=== PATIENT | female | born 1970 | race Caucasian/White ===

== ENCOUNTER 2016-11-26 17:13 | Inpatient (IN) | payer SELFPAY ==
[2016-11-26] MEDS ORDERED: CLONIDINE HCL 0.2 MG TABLET PO ONE (18:01)
--- NOTE | 2016-11-26 18:02 | ER Document Report ---
ED Medical Screen (RME) - General Chief Complaint: Dizziness Stated Complaint: DIZZY,VOMITING,HEADACHE Time Seen by Provider: 11/26/16 18:01 TRAVEL OUTSIDE OF THE [place] IN LAST 30 DAYS: No - HPI Patient complains to provider of: Dizziness, vomiting, high blood pressure Notes: 11/26/16 18:02 Patient is a 46-year-old female presenting to the emergency room today complaining of dizziness with one episode of vomiting and high blood pressure, she reports she had a slight headache earlier today but that is resolved, she has a history of high blood pressure in the past but lost her insurance and therefore has not followed up in quite some time, she is not currently taking medication for blood pressure control, she denies any chest pain or shortness of breath - Related Data Allergies/Adverse Reactions: No Known Allergies Allergy (Verified 11/26/16 17:16) Past Medical History Renal/ Medical History: Denies: Hx Peritoneal Dialysis - Immunizations Hx Diphtheria, Pertussis, Tetanus Vaccination: Yes Physical Exam - Vital signs Vitals: Temp Pulse Resp BP Pulse Ox 97.8 F 82 20 280/146 H 100 11/26/16 17:23 11/26/16 17:23 11/26/16 17:23 11/26/16 17:23 11/26/16 17:23 Course - Vital Signs Vital signs: Temp Pulse Resp BP Pulse Ox 97.8 F 82 20 280/146 H 100 11/26/16 17:23 11/26/16 17:23 11/26/16 17:23 11/26/16 17:23 11/26/16 17:23
[2016-11-26] MEDS ORDERED: NICARDIPINE HCL RTU, ISO-OS 20 MG/200 ML RTUINJ IV ONE (18:22)
[2016-11-26] MEDS ORDERED: NICARDIPINE HCL RTU, ISO-OS 20 MG/200 ML RTUINJ IV PRN ×3 (18:23→20:16)
[2016-11-26 18:24] LABS: ABSOLUTE BASOPHILS # (AUTO) 0.1 10^3/uL (0.0-0.2); ABSOLUTE LYMPHOCYTES (AUTO) 0.7 10^3/uL (0.5-4.7); ABSOLUTE MONOCYTES (AUTO) 0.3 10^3/uL (0.1-1.4); ABSOLUTE NEUT (AUTO) 11.4 10^3/uL (1.7-8.2); BASOPHILS % (AUTO) 0.5 % (0-2); EOSINOPHILS % (AUTO) 0.1 % (0-6); HEMATOCRIT 38.7 % (36.0-47.0); HEMOGLOBIN 12.5 g/dL (12.0-15.5); HGB HCT DIFFERENCE -1.2; LYMPHOCYTES % (AUTO) 5.5 % (13-45); MEAN CORPUSCULAR HEMOGLOBIN 25.7 pg (27.0-33.4); MEAN CORPUSCULAR HGB CONC 32.4 g/dL (32.0-36.0); MEAN CORPUSCULAR VOLUME 79 fl (80-97); MONOCYTES % (AUTO) 2.7 % (3-13); RED BLOOD COUNT 4.87 10^6/uL (3.72-5.28); RED CELL DISTRIBUTION WIDTH 16.8 % (11.5-14.0); SEGMENTED NEUTROPHILS % (AUTO) 91.2 % (42-78); WHITE BLOOD COUNT 12.5 10^3/uL (4.0-10.5)
--- NOTE | 2016-11-26 18:31 | RADIOLOGY REPORT (SQ) ---
EXAM DESCRIPTION: CHEST PA/LAT COMPLETED DATE/TIME: 11/26/2016 6:14 pm REASON FOR STUDY: dizzy COMPARISON: None. EXAM PARAMETERS: NUMBER OF VIEWS: two views TECHNIQUE: Digital Frontal and Lateral radiographic views of the chest acquired. RADIATION DOSE: NA LIMITATIONS: none FINDINGS: LUNGS AND PLEURA: No opacities, masses or pneumothorax. No pleural effusion. MEDIASTINUM AND HILAR STRUCTURES: No masses or contour abnormalities. HEART AND VASCULAR STRUCTURES: Cardiac silhouette is at the upper limits of normal in size. BONES: No acute findings. HARDWARE: None in the chest. OTHER: No other significant finding. IMPRESSION: Cardiac silhouette is at the upper limits of normal in size. No acute consolidations or pleural effusions are identified. Other findings as noted above TECHNICAL DOCUMENTATION: JOB ID: [id number]- All Rights Reserved
[2016-11-26 18:46] LABS: ALANINE AMINOTRANSFERASE 21 U/L (9-52); ALKALINE PHOSPHATASE 101 U/L (38-126); ANION GAP 11 (5-19); ASPARTATE AMINO TRANSFERASE 19 U/L (14-36); BILIRUBIN,DIRECT 0.4 mg/dL (0.0-0.4); BILIRUBIN,TOTAL 0.8 mg/dL (0.2-1.3); BLOOD UREA NITROGEN 22 mg/dL (7-20); CALCIUM 9.1 mg/dL (8.4-10.2); CARBON DIOXIDE 28 mmol/L (22-30); CHLORIDE 102 mmol/L (98-107); CREATINE KINASE 65 U/L (30-135); CREATININE RESULT 1.12 mg/dL (0.52-1.25); GLUCOSE 110 mg/dL (75-110); POTASSIUM 3.9 mmol/L (3.6-5.0); SODIUM 140.9 mmol/L (137-145); TOTAL PROTEIN 7.1 g/dL (6.3-8.2)
[2016-11-26 18:49] LABS: CREATINE KINASE MB 1.23 ng/mL (<4.55)
[2016-11-26 18:52] LABS: TROPONIN I 0.092 ng/mL
--- NOTE | 2016-11-26 18:55 | ER Document Report ---
ED General - General Chief Complaint: Dizziness Stated Complaint: DIZZY,VOMITING,HEADACHE Time Seen by Provider: 11/26/16 18:01 Notes: Patient is a 46-year-old female with a past medical history of hypertension currently off all medications due to lack of insurance who presents with nausea , vomiting, vertigo, and headache. Patient states that the symptoms gradually started today while at work became progressive to the point where she could no longer stay at work and decided to come to the emergency department. She has not been following with her primary care doctor due to loss of insurance approximately 1 year ago but states that she used to require 3-4 blood pressure medications daily to control her blood pressure. Nothing improves or worsens her symptoms. She denies any associated chest pain or shortness of breath. No loss of consciousness. No history of intracranial bleed. Does describe her headache as a dull, mild, bifrontal headache that is now resolved. Her symptoms started approximately 3 hours prior to arrival. TRAVEL OUTSIDE OF THE [place] IN LAST 30 DAYS: No - Related Data Allergies/Adverse Reactions: No Known Allergies Allergy (Verified 11/26/16 17:16) Home Medications: Current Home Medications No Home Medications 11/26/16 [History] Past Medical History - General Information source: Patient - Social History Smoking Status: Never Smoker Frequency of alcohol use: None Drug Abuse: None Family History: Reviewed & Not Pertinent Renal/ Medical History: Denies: Hx Peritoneal Dialysis - Immunizations Hx Diphtheria, Pertussis, Tetanus Vaccination: Yes Review of Systems - Review of Systems Notes: Constitutional: Negative for fever. HENT: Negative for sore throat. Eyes: Negative for visual changes. Cardiovascular: Negative for chest pain. Respiratory: Negative for shortness of breath. Gastrointestinal: Negative for abdominal pain, positive for vomiting Genitourinary: Negative for dysuria. Musculoskeletal: Negative for back pain. Skin: Negative for rash. Neurological: Positive for headache and vertigo 10 point ROS negative except as marked above and in HPI. Physical Exam - Vital signs Vitals: Temp Pulse Resp BP Pulse Ox 97.8 F 82 20 280/146 H 100 11/26/16 17:23 11/26/16 17:23 11/26/16 17:23 11/26/16 17:23 11/26/16 17:23 Interpretation: Hypertensive Notes: PHYSICAL EXAMINATION: GENERAL: Appears mildly uncomfortable but no acute distress HEAD: Atraumatic, normocephalic. EYES: Pupils equal round and reactive to light, extraocular movements intact, sclera anicteric, conjunctiva are normal. ENT: nares patent, oropharynx clear without exudates. Moist mucous membranes. NECK: Normal range of motion, supple without lymphadenopathy LUNGS: Breath sounds clear to auscultation bilaterally and equal. No wheezes rales or rhonchi. HEART: Regular rate and rhythm without murmurs ABDOMEN: Soft, nontender, normoactive bowel sounds. No guarding, no rebound. No masses appreciated. EXTREMITIES: Normal range of motion, no pitting or edema. No cyanosis. NEUROLOGICAL: Face symmetric. Tongue protrudes midline. Extraocular motions intact. Pupils are 2 mm and equally reactive. Normal speech, normal gait. 5 out of 5 strength in both the distal and proximal upper and lower extremities bilaterally. Sensation is grossly intact throughout. Finger to nose testing normal. Pronator drift normal. PSYCH: Normal mood, normal affect. SKIN: Warm, Dry, normal turgor, no rashes or lesions noted. Course - Re-evaluation Re-evalutation: 11/26/16 18:13 Patient presents with severe hypertension initial systolic blood pressure of 280 on a manual cuff with associated dizziness, nausea and vomiting as well as a mild headache. Immediately upon arriving from my shift, I went to see this patient directly. She was immediately placed on nicardipine infusion targeting a systolic blood pressure 25% total reduction at 205 goal pressure. Patient has no focal neurologic deficits on examination. She denies any active headache at time of my assessment. A stat CT of the head was also ordered. Initial EKG does show signs consistent with left ventricular hypertrophy with associated repolarization abnormalities. There also trace ST depressions in the lateral leads V4 through 6. Initial troponin is moderately elevated at 0.096. Patient denies any active chest pain. Given patient's critically elevated blood pressure, the need for nicardipine infusion, the possibility of intracranial bleed, patient is critically ill and will require frequent reassessments and admission to the hospital. 11/26/16 19:12 CT head is unremarkable. Patient's blood pressure is on the nicardipine infusion has now dropped to 195 on 116 so we will hold the infusion and allow her blood pressure to stabilize at this time to prevent further dropping. 11/26/16 19:45 Nicardipine drip continues to be on hold and patient's blood pressure is stabilized at 188 and 103 right now. She no longer is dizzy or having a headache. She denies any chest pain. Will discuss with the hospitalist for admission. 11/26/16 20:13 Nicardipine infusion has been restarted at 2-1/2 mg/h as patient's blood pressure has again up trended back to 30 and 115. She however remains asymptomatic at this blood pressure. I discussed with Dr. Nuno Saldaña who has accepted the patient for admission. - Vital Signs Vital signs: Temp Pulse Resp BP Pulse Ox 97.8 F 82 23 H 197/107 H 96 11/26/16 17:23 11/26/16 18:16 11/26/16 20:16 11/26/16 20:16 11/26/16 20:16 - Laboratory Result Diagrams: 11/26/16 18:09 11/26/16 18:09 Laboratory results interpreted by me: 11/26/16 11/26/16 11/26/16 18:09 18:09 18:54 WBC 12.5 H MCV 79 L MCH 25.7 L RDW 16.8 H Seg Neutrophils % 91.2 H Lymphocytes % 5.5 L Monocytes % 2.7 L Absolute Neutrophils 11.4 H BUN 22 H Est GFR (Non-Af Amer) 52 L Urine Protein >=500 H Urine Glucose (UA) 50 H - Diagnostic Test Radiology reviewed: Image reviewed, Reports reviewed Radiology results interpreted by me: 11/26/16 20:18 CT head: No acute intercranial bleed - EKG Interpretation by Me Additional EKG results interpreted by me: 11/26/16 18:55 Sinus rhythm. Rate 72. LVH with associated repolarization abnormalities. 0.[address] depressions in V4 through 6. No ST elevations. Critical Care Note - Critical Care Note Total time excluding time spent on procedures (mins): 38 Comments: Critical care time spent obtaining history from patient or surrogate, discussions with consultants, development of treatment plan with patient or surrogate, evaluation of patient's response to treatment, examination of patient , ordering and performing treatments and interventions, ordering and review of laboratory studies, re-evaluation of patient's condition, ordering and review of radiographic studies and review of old charts Discharge - Discharge Clinical Impression: Hypertensive emergency, Dizziness Nausea and vomiting Qualifiers: Vomiting type: unspecified Vomiting Intractability: non-intractable Qualified Code(s): R11.2 - Nausea with vomiting, unspecified Condition: Fair Disposition: ADMITTED INPATIENT Admitting Provider: [facility] Unit Admitted: ICU
--- NOTE | 2016-11-26 18:59 | RADIOLOGY REPORT (SQ) ---
EXAM DESCRIPTION: CT HEAD WITHOUT COMPLETED DATE/TIME: 11/26/2016 6:48 pm REASON FOR STUDY: htn, ams, headache COMPARISON: None. TECHNIQUE: Axial images acquired through the brain without intravenous contrast. Images reviewed wi th bone, brain and subdural windows. Images stored on PACS. All CT scanners at this facility use dose modulation, iterative reconstruction, and/or weight based d osing when appropriate to reduce radiation dose to as low as reasonably achievable (ALARA). [facility]: Dose Right [facility]: CareDose [facility]: Dose Right [facility]: Teradose 4D [facility]: [employer] RADIATION DOSE: Up-to-date CT equipment and radiation dose reduction techniques were employed. CTDIv ol: 49.0 mGy. DLP: 783 mGy-cm. mGy. LIMITATIONS: None. FINDINGS: VENTRICLES: Normal size and contour. CEREBRUM: No masses. No hemorrhage. No midline shift. No evidence for acute infarction. Normal gra y/white matter differentiation. No areas of low density in the white matter. CEREBELLUM: No masses. No hemorrhage. No alteration of density. No evidence for acute infarction. EXTRAAXIAL SPACES: No fluid collections. No masses. ORBITS AND GLOBE: No intra- or extraconal masses. Normal contour of globe without masses. CALVARIUM: No fracture. PARANASAL SINUSES: No fluid or mucosal thickening. SOFT TISSUES: No mass or hematoma. OTHER: No other significant finding. IMPRESSION: NORMAL BRAIN CT WITHOUT CONTRAST. EVIDENCE OF ACUTE STROKE: NO. COMMENT: Quality ID # [id number]: Final reports with documentation of one or more dose reduction techniques (e.g., Automated exposure control, adjustment of the mA and/or kV according to patient size, use of iterative reconstruction technique) TECHNICAL DOCUMENTATION: JOB ID: [id number] [email or web address]- All Rights Reserved
[2016-11-26 19:13] LABS: APPEARANCE,URINE CLEAR; BILIRUBIN,URINE NEGATIVE (NEGATIVE); GLUCOSE, URINE 50 mg/dL (NEGATIVE); KETONES,URINE NEGATIVE (NEGATIVE); LEUKOCYTE ESTERASE,URINE NEGATIVE (NEGATIVE); NITRITE,URINE NEGATIVE (NEGATIVE); PROTEIN,URINE >=500 mg/dL (NEGATIVE); URINE SPECIFIC GRAVITY 1.005; UROBILINOGEN,URINE NEGATIVE mg/dL (<2.0)
[2016-11-26] MEDS ORDERED: MAGNESIUM HYDROXIDE SUSP 30 ML UDCUP PO PRN (20:12)
[2016-11-26] MEDS: ONDANSETRON HCL INJ/PF 4 MG/2 ML SDV IV PRN (21:09)
[2016-11-26] MEDS ORDERED: LISINOPRIL 10 MG TABLET PO SCH (22:00)
[2016-11-26 22:13] LABS: URINE BARBITURATES SCREEN NEGATIVE; URINE METHADONE SCREEN NEGATIVE; URINE OPIATES LOW NEGATIVE; URINE PHENCYCLIDINE SCREEN NEGATIVE
[2016-11-26] MEDS: ACETAMINOPHEN 325 MG TABLET PO PRN (23:17)
[2016-11-26 23:20] LABS: CREATINE KINASE MB 1.74 ng/mL (<4.55); TROPONIN I 0.09 ng/mL
--- NOTE | 2016-11-27 03:57 | EKG REPORT ---
SEVERITY:- ABNORMAL ECG - SINUS RHYTHM LVH WITH SECONDARY REPOLARIZATION ABNORMALITY ABNORMAL T, PROBABLE ISCHEMIA, LATERAL LEADS ANTERIOR ST ELEVATION, PROBABLY DUE TO LVH BORDERLINE PROLONGED QT INTERVAL : Confirmed by: Marlyn Calle MD 27-Nov-2016 03:56:20
[2016-11-27 05:10] LABS: ABSOLUTE BASOPHILS # (AUTO) 0.1 10^3/uL (0.0-0.2); ABSOLUTE LYMPHOCYTES (AUTO) 0.9 10^3/uL (0.5-4.7); ABSOLUTE MONOCYTES (AUTO) 0.6 10^3/uL (0.1-1.4); ABSOLUTE NEUT (AUTO) 14.1 10^3/uL (1.7-8.2); BASOPHILS % (AUTO) 0.4 % (0-2); EOSINOPHILS % (AUTO) 0.1 % (0-6); HEMATOCRIT 40.2 % (36.0-47.0); HGB HCT DIFFERENCE -1.2; LYMPHOCYTES % (AUTO) 5.7 % (13-45); MEAN CORPUSCULAR HEMOGLOBIN 25.8 pg (27.0-33.4); MEAN CORPUSCULAR HGB CONC 32.4 g/dL (32.0-36.0); MEAN CORPUSCULAR VOLUME 80 fl (80-97); RED BLOOD COUNT 5.05 10^6/uL (3.72-5.28); RED CELL DISTRIBUTION WIDTH 16.6 % (11.5-14.0); SEGMENTED NEUTROPHILS % (AUTO) 89.8 % (42-78); WHITE BLOOD COUNT 15.7 10^3/uL (4.0-10.5)
[2016-11-27 05:26] LABS: ANION GAP 12 (5-19); BLOOD UREA NITROGEN 19 mg/dL (7-20); CALCIUM 9.3 mg/dL (8.4-10.2); CARBON DIOXIDE 29 mmol/L (22-30); CHLORIDE 100 mmol/L (98-107); CREATININE RESULT 1.02 mg/dL (0.52-1.25); Direct HDL 54 mg/dL (>40); GLUCOSE 108 mg/dL (75-110); POTASSIUM 3.7 mmol/L (3.6-5.0); SODIUM 140.7 mmol/L (137-145); TRIGLYCERIDES 62 mg/dL (<150)
[2016-11-27 05:37] LABS: DIRECT LDL 225 mg/dL (<100)
[2016-11-27 05:38] LABS: CREATINE KINASE MB 2.77 ng/mL (<4.55)
[2016-11-27 05:41] LABS: TROPONIN I 0.164 ng/mL
--- NOTE | 2016-11-27 05:54 | PDOC H&P ---
History of Present Illness Admission Date/PCP: 11/26/16 20:33 Patient complains of: Nausea vomiting dizziness History of Present Illness: BERNIE CONTRERAS is a 46 year old female with a past medical history of hypertension though noncompliance with medication secondary to financial barriers for approximately 1 year would been her usual state of health until approximately 4 hours prior to presentation with headache, nausea vomiting blurred vision and dizziness prompting her evaluation emergency room where she is found to have a blood pressure of 280/160 she started on nicardipine with resolution of symptoms. She denies chest pain, shortness of breath or palpitations. She denies previous episode or change in medications. She is referred to the hospitalist for admission Past Medical History Cardiac Medical History: Reports: Hypertension - no meds Social History Information Source: Patient Smoking Status: Never Smoker Frequency of Alcohol Use: None Hx Recreational Drug Use: No - Advance Directive Resuscitation Status: Full Code Family History Family History: Hypertension Parental Family History Reviewed: Yes Children Family History Reviewed: Yes Sibling(s) Family History Reviewed.: Yes Medication/Allergy Home Medications: No Home Medications 11/26/16 Allergies/Adverse Reactions: No Known Allergies Allergy (Verified 11/26/16 17:16) Review of Systems Constitutional: ABSENT: chills, fever(s), headache(s), weight gain, weight loss Eyes: ABSENT: visual disturbances Ears: ABSENT: hearing changes Cardiovascular: ABSENT: chest pain, dyspnea on exertion, edema, orthropnea, palpitations Respiratory: ABSENT: cough, hemoptysis Gastrointestinal: ABSENT: abdominal pain, constipation, diarrhea, hematemesis, hematochezia, nausea, vomiting Genitourinary: ABSENT: dysuria, hematuria Musculoskeletal: ABSENT: joint swelling Integumentary: ABSENT: rash, wounds Neurological: ABSENT: abnormal gait, abnormal speech, confusion, dizziness, focal weakness, syncope Psychiatric: ABSENT: anxiety, depression, homidical ideation, suicidal ideation Endocrine: ABSENT: cold intolerance, heat intolerance, polydipsia, polyuria Hematologic/Lymphatic: ABSENT: easy bleeding, easy bruising Physical Exam Vital Signs: Temp Pulse Resp BP Pulse Ox 97.9 F 78 19 146/118 H 95 11/27/16 03:56 11/26/16 23:25 11/27/16 03:15 11/27/16 03:02 11/27/16 03:15 Intake & Output 11/25/16 11/26/16 11/27/16 11:59 11:59 11:59 Intake Total 100 Output Total 200 Balance -100 Weight 69.4 kg General appearance: PRESENT: cooperative, mild distress Head exam: PRESENT: atraumatic, normocephalic Eye exam: PRESENT: conjunctiva pink, EOMI, PERRLA. ABSENT: scleral icterus Ear exam: PRESENT: normal external ear exam Mouth exam: PRESENT: moist, tongue midline Neck exam: ABSENT: carotid bruit, JVD, lymphadenopathy, thyromegaly Respiratory exam: PRESENT: clear to auscultation surjit. ABSENT: rales, rhonchi, wheezes Cardiovascular exam: PRESENT: gallop, RRR, +S1, +S2, systolic murmur Pulses: PRESENT: normal dorsalis pedis pul Vascular exam: PRESENT: normal capillary refill GI/Abdominal exam: PRESENT: normal bowel sounds, soft. ABSENT: distended, guarding, mass, organolmegaly, rebound, tenderness Rectal exam: PRESENT: deferred Extremities exam: PRESENT: full ROM. ABSENT: calf tenderness, clubbing, pedal edema Neurological exam: PRESENT: alert, awake, oriented to person, oriented to place , oriented to time, oriented to situation, CN II-XII grossly intact. ABSENT: motor sensory deficit Psychiatric exam: PRESENT: appropriate affect, normal mood. ABSENT: homicidal ideation, suicidal ideation Skin exam: PRESENT: dry, intact, warm. ABSENT: cyanosis, rash Results Laboratory Results: 11/27/16 05:00 11/27/16 05:00 11/27/16 11/27/16 05:00 05:00 WBC 15.7 H RBC 5.05 Hgb 13.0 Hct 40.2 MCV 80 MCH 25.8 L MCHC 32.4 RDW 16.6 H Plt Count 240 Seg Neutrophils % 89.8 H Lymphocytes % 5.7 L Monocytes % 4.0 Eosinophils % 0.1 Basophils % 0.4 Absolute Neutrophils 14.1 H Absolute Lymphocytes 0.9 Absolute Monocytes 0.6 Absolute Eosinophils 0.0 Absolute Basophils 0.1 Sodium 140.7 Potassium 3.7 Chloride 100 Carbon Dioxide 29 Anion Gap 12 BUN 19 Creatinine 1.02 Est GFR ( Amer) > 60 Est GFR (Non-Af Amer) 58 L Glucose 108 Calcium 9.3 Triglycerides 62 Cholesterol 279.20 H LDL Cholesterol Direct 225 H VLDL Cholesterol 12.0 HDL Cholesterol 54 11/26/16 11/27/16 22:44 05:00 CK-MB (CK-2) 1.74 2.77 Troponin I 0.090 0.164 Impressions: Chest X-Ray 11/26/16 18:01 IMPRESSION: Cardiac silhouette is at the upper limits of normal in size. No acute consolidations or pleural effusions are identified. Other findings as noted above Head CT 11/26/16 18:23 IMPRESSION: NORMAL BRAIN CT WITHOUT CONTRAST. EVIDENCE OF ACUTE STROKE: NO. Assessment & Plan - Diagnosis (1) Hypertensive emergency Is this a current diagnosis for this admission?: Yes Plan: Admission to ICU for IV nicardipine. Goal blood pressure over the next 12 hours of 200/100. No obvious underlying cause. We will evaluate TSH and urine drug screen (2) Dizziness Is this a current diagnosis for this admission?: Yes Plan: Secondary to #1 symptomatic management and reduction in blood pressure (3) Nausea and vomiting Qualifiers: Vomiting type: unspecified Vomiting Intractability: non-intractable Qualified Code(s): R11.2 - Nausea with vomiting, unspecified Is this a current diagnosis for this admission?: Yes Plan: Secondary to #1 symptomatic management reduction of blood pressure - Time Time Spent: 50 to 70 Minutes - Inpatient Certification Medical Necessity: Need Close Monitoring Due to Risk of Patient Decompensation
[2016-11-27] MEDS ORDERED: NORMAL SALINE 1000 ML 1,000 ML IV ONE ×2 (07:19→08:23)
[2016-11-27] MEDS ORDERED: ASPIRIN 81 MG TABLET, CHEWABLE PO ONE (08:24)
[2016-11-27] MEDS ORDERED: ASPIRIN 81 MG TABLET, CHEWABLE ONE (08:30)
[2016-11-27] MEDS ORDERED: TRAMADOL HCL 50 MG TABLET PO PRN (08:30)
[2016-11-27] MEDS ORDERED: LACTULOSE SYRUP 20 GM/30 ML UDCUP PR SCH (10:00)
[2016-11-27] MEDS ORDERED: HYDROCHLOROTHIAZIDE 12.5 MG CAPSULE PO SCH (10:00)
[2016-11-27 11:09] LABS: PROTHROMBIN TIME 13.9 SEC (11.4-15.4)
[2016-11-27 11:10] LABS: PARTIAL THROMBOPLASTIN TIME 33.3 SEC (23.5-35.8)
[2016-11-27 11:32] LABS: CREATINE KINASE MB 4.23 ng/mL (<4.55)
[2016-11-27 11:41] LABS: TROPONIN I 0.418 ng/mL
--- NOTE | 2016-11-27 11:55 | RADIOLOGY REPORT (SQ) ---
EXAM DESCRIPTION: MRA NECK WITHOUT COMPLETED DATE/TIME: 11/27/2016 11:39 am REASON FOR STUDY: hypertensive emergency COMPARISON: None. TECHNIQUE: Axial 2-D volume acquisition imaging through the extracranial carotid and vertebral arter ies with reformatting using 3-D MIPS. LIMITATIONS: None. FINDINGS: RIGHT CAROTID ARTERY: No stenosis or occlusive changes. Limited visualization of the orig in. LEFT CAROTID ARTERY: No stenosis or occlusive changes. Limited visualization of the origin. VERTEBRAL ARTERY: The extracranial portions of the vertebral basilar system are preserved without roxana nosis. No aneurysmal dilatation or dissection is seen. OTHER: No other significant finding. IMPRESSION: NO SIGNIFICANT STENOSIS. COMMENT: Quality ID #[id number]: Measurements of distal internal carotid diameter were used as the denomin ator for stenosis measurement. TECHNICAL DOCUMENTATION: JOB ID: [id number] [employer]- All Rights Reserved
--- NOTE | 2016-11-27 11:59 | RADIOLOGY REPORT (SQ) ---
EXAM DESCRIPTION: MRA HEAD WITHOUT COMPLETED DATE/TIME: 11/27/2016 11:40 am REASON FOR STUDY: hypertensive emergency COMPARISON: None. TECHNIQUE: Axial 3-D [id number] acquisition imaging performed through the brain in the area of t he [place]. Images reformatted using 3-D MIPS. LIMITATIONS: None. FINDINGS: SOURCE IMAGES: No unexpected findings on source images. No large masses. 3-D MIP: No aneurysm. No occlusions. No significant stenosis. OTHER: No other significant finding. IMPRESSION: NORMAL MRA OF THE [place]. TECHNICAL DOCUMENTATION: JOB ID: [id number] [employer]- All Rights Reserved
--- NOTE | 2016-11-27 12:14 | XCELERA REPORT ---
[address] [address] Transthoracic Echocardiogram Report Name: BERNIE CONTRERAS Age: 46 yrs Gender: Female : 1970 Patient Status: Inpatient Patient Location: ICU^[id number] Study Date: 11/27/2016 09:15 AM Height: 63 in Weight: 153 lb BSA: 1.7 m2 Procedure: A complete two-dimensional transthoracic echocardiogram was performed (2D, M-mode, spectral and color flow Doppler). The study was technically adequate with some images being suboptimal in quality. Reason For Study: acute cva, hypertensive emergency Ordering Physician: SELVIN MIRANDA Performed By: Cornelius Beck Interpretation Summary The left ventricular ejection fraction is normal. There is moderate concentric left ventricular hypertrophy. Doppler measurements suggest pseudonormalized left ventricular relaxation, which is associated with grade II/IV or mild to moderate diastolic dysfunction The left ventricle is grossly normal size. Wall motion cannot be accurately commented on, but no definite regional wall motion abnormalities noted. The right ventricular systolic function is normal. Borderline right ventricular enlargement. The right atrium is mild to moderately dilated. The left atrium is mildly dilated. There is a mild amount of mitral regurgitation There is no mitral valve stenosis. No aortic regurgitation is present. There is no aortic valve stenosis There is a trace or physiologic amount of tricuspid regurgitation Tricuspid regurgitation jet envelope not well defined to measure RV systolic pressure accurately. Minimal pericardial effusion. MMode/2D Measurements & Calculations RVDd: 2.7 cm LVIDd: 4.7 cm FS: 38.6 % Ao root diam: 2.7 cm IVSd: 2.0 cm LVIDs: 2.9 cm EDV(Teich): 101.0 ml LVPWd: 1.8 cm ESV(Teich): 31.4 ml Ao root area: 5.7 cm2 EF(Teich): 68.9 % LA dimension: 4.0 cm Doppler Measurements & Calculations MV E max claude: MV P1/2t max claude: Ao V2 max: LV V1 max P.7 cm/sec 99.2 cm/sec 149.4 cm/sec 3.6 mmHg MV A max claude: MV P1/2t: 56.5 msec Ao max PG: LV V1 max: 84.4 cm/sec 8.9 mmHg 94.3 cm/sec MV E/A: 1.2 MVA(P1/2t): 3.9 cm2 MV dec slope: 514.0 cm/sec2 PA V2 max: PI end-d claude: TR max claude: RAP systole: 102.8 cm/sec 126.0 cm/sec 229.9 cm/sec 5.0 mmHg PA max PG: TR max P.2 mmHg 22.1 mmHg RVSP(TR): 27.1 mmHg Left Ventricle The left ventricle is grossly normal size. There is moderate concentric left ventricular hypertrophy. The left ventricular ejection fraction is normal. Doppler measurements suggest pseudonormalized left ventricular relaxation, which is associated with grade II/IV or mild to moderate diastolic dysfunction. Wall motion cannot be accurately commented on, but no definite regional wall motion abnormalities noted. Right Ventricle Borderline right ventricular enlargement. There is normal right ventricular wall thickness. The right ventricular systolic function is normal. Atria The right atrium is mild to moderately dilated. The left atrium is mildly dilated. Interarterial septum not well visualized and not well dopplered. Cannot comment on ASD/PFO presence. Mitral Valve The mitral valve is grossly normal. There is no mitral valve stenosis. There is a mild amount of mitral regurgitation. Aortic Valve The aortic valve is not well visualized secondary to technical limitations. There is no aortic valve stenosis. No aortic regurgitation is present. Tricuspid Valve The tricuspid valve is not well visualized, but is grossly normal. There is no tricuspid stenosis. There is a trace or physiologic amount of tricuspid regurgitation. Tricuspid regurgitation jet envelope not well defined to measure RV systolic pressure accurately. Pulmonic Valve The pulmonic valve is not well visualized. Great Vessels The aortic root is not well visualized. The inferior vena cava appeared normal and decreased < 50% with respiration (RAP 10-15 mmHg). Effusions Minimal pericardial effusion. Incidental Findings No definite cardiac source of CVA/TIA noted on this particular trans- thoracic study. Consider LOREE if clinically indicated. May consider mobile cardiac telemetry monitoring (MCT) for ruling out transient AFIB. : SELVIN MIRANDA Shyamal
--- NOTE | 2016-11-27 12:16 | RADIOLOGY REPORT (SQ) ---
EXAM DESCRIPTION: MRI HEAD WITHOUT COMPLETED DATE/TIME: 11/27/2016 11:40 am REASON FOR STUDY: cerebellar signs, hypertensive emergency COMPARISON: Brain CT scan dated 11/26/2016 TECHNIQUE: Multiplanar imaging includes non-contrasted T1, T2, FLAIR, and diffusion with ADC map seq uences. Images stored on PACS. LIMITATIONS: None. FINDINGS: ANATOMY: No anomalies. Normal vascular flow voids. Pituitary fossa normal. CSF SPACES: Normal in size and contour. No hemorrhage. CEREBRUM: Sulci and gyri normal in size and contour. There are diffuse confluent and focal areas of abnormal signal intensity in the periventricular white matter on the FLAIR sequence. Wihile this may only represent small vessel ischemic changes, the possibility of a demyelinating process such as MS cannot be excluded. Clinical correlation is recommended. No evidence of hemorrhage, mass, or extraa xial fluid collection. POSTERIOR FOSSA: No signal alteration. No hemorrhage. No edema, masses or mass effect. Internal tona tory canals, cerebello-pontine angles, mastoids normal. DIFFUSION IMAGING: There is a focal area of abnormal signal intensity at the level of the medulla on the right consistent with an area of recent infarction. ORBITS: No masses. Globes normal. PARANASAL SINUSES: No fluid levels. Mucosa normal. OTHER: No other significant finding. IMPRESSION: Diffuse confluent and focal areas of abnormal signal intensity in the periventricular wh ite matter on the FLAIR sequence as noted above. Will this may only represent small vessel ischemic changes, the possibility of a demyelinating process such is in mass cannot be excluded. Clinical cor relation is recommended. Focal area of abnormal signal intensity on the diffusion weighted sequence at the level of the medulla on the right consistent with an area of recent infarction. Other finding s as noted above EVIDENCE OF ACUTE STROKE: NO. TECHNICAL DOCUMENTATION: JOB ID: [id number] [employer]- All Rights Reserved
[2016-11-27] MEDS: ASPIRIN 325 MG TABLET, ENT COATED PO SCH (13:06)
[2016-11-27] MEDS: LISINOPRIL 10 MG TABLET PO SCH (13:06)
[2016-11-27] MEDS: DOCUSATE SODIUM 100 MG CAPSULE PO SCH ×2 (13:13→17:57)
[2016-11-27] MEDS: ENOXAPARIN SODIUM INJ 40 MG/0.4 ML DISP.SYRIN SUBCUT SCH (13:13)
[2016-11-27] MEDS ORDERED: LORAZEPAM INJ 2 MG/1 ML VIAL IV PRN (18:09)
--- NOTE | 2016-11-27 18:15 | PDOC PROGRESS REPORT ---
Subjective Progress Note for:: 11/27/16 Subjective:: Patient currently off Cardene when I see her. Patient notes some difficulty with her vision and her nystagmus is quite obvious upon my initial meeting. Patient admits to mild headache. Patient denies chest pain, shortness of breath, abdominal pain, nausea, vomiting , fevers, chills, diarrhea, constipation. Physical Exam Vital Signs: Temp Pulse Resp BP Pulse Ox 97.6 F 61 12 191/110 H 100 11/27/16 16:00 11/27/16 16:00 11/27/16 16:00 11/27/16 16:00 11/27/16 16:00 Intake & Output 11/26/16 11/27/16 11/28/16 06:59 06:59 06:59 Intake Total 353 Output Total 200 800 Balance 153 -800 Weight 69.4 kg Exam: General: Awake alert and oriented x3, no acute respiratory distress HEENT: AT/NC, PERRL, oropharynx is moist, pink, no scleral icterus, no conjunctival injection Neck: No JVD, trachea midline Chest: Clear to auscultation bilaterally, no wheezes rhonchi or rales CV: Regular rate and rhythm, normal S1 and S2, no murmur, rub, gallop Abdomen: Soft, nontender to palpation, nondistended, active bowel sounds; no rebound, rigidity, or guarding Extremities: No cyanosis, clubbing or edema Neuro: nystagmus, right eye lateral devation. +FTN, +lean to right; ataxia; vertigo; awake alert and oriented x3 Psych: Normal mood and affect Results Laboratory Results: 11/27/16 05:00 11/27/16 05:00 11/27/16 11/27/16 05:00 05:00 WBC 15.7 H RBC 5.05 Hgb 13.0 Hct 40.2 MCV 80 MCH 25.8 L MCHC 32.4 RDW 16.6 H Plt Count 240 Seg Neutrophils % 89.8 H Lymphocytes % 5.7 L Monocytes % 4.0 Eosinophils % 0.1 Basophils % 0.4 Absolute Neutrophils 14.1 H Absolute Lymphocytes 0.9 Absolute Monocytes 0.6 Absolute Eosinophils 0.0 Absolute Basophils 0.1 Sodium 140.7 Potassium 3.7 Chloride 100 Carbon Dioxide 29 Anion Gap 12 BUN 19 Creatinine 1.02 Est GFR ( Amer) > 60 Est GFR (Non-Af Amer) 58 L Glucose 108 Calcium 9.3 Triglycerides 62 Cholesterol 279.20 H LDL Cholesterol Direct 225 H VLDL Cholesterol 12.0 HDL Cholesterol 54 11/26/16 11/27/16 11/27/16 22:44 05:00 10:49 CK-MB (CK-2) 1.74 2.77 4.23 Troponin I 0.090 0.164 0.418 Impressions: Chest X-Ray 11/26/16 18:01 IMPRESSION: Cardiac silhouette is at the upper limits of normal in size. No acute consolidations or pleural effusions are identified. Other findings as noted above Head CT 11/26/16 18:23 IMPRESSION: NORMAL BRAIN CT WITHOUT CONTRAST. EVIDENCE OF ACUTE STROKE: NO. Brain MRI with MRA 11/27/16 00:00 IMPRESSION: NORMAL MRA OF THE [place] OF [place]. Head MRI 11/27/16 00:00 IMPRESSION: Diffuse confluent and focal areas of abnormal signal intensity in the periventricular white matter on the FLAIR sequence as noted above. Will this may only represent small vessel ischemic changes, the possibility of a demyelinating process such is in mass cannot be excluded. Clinical correlation is recommended. Focal area of abnormal signal intensity on the diffusion weighted sequence at the level of the medulla on the right consistent with an area of recent infarction. Other findings as noted above EVIDENCE OF ACUTE STROKE: NO. Neck MRA 11/27/16 00:00 IMPRESSION: NO SIGNIFICANT STENOSIS. Assessment & Plan - Diagnosis (1) Hypertensive emergency Is this a current diagnosis for this admission?: Yes Plan: Patient presented with acute neurologic findings and an exceptionally elevated blood pressure. Goal blood pressure to 220/120 in light of her acute neurologic findings. Currently off Cardene drip 11/26/16 11/26/16 11/26/16 17:23 17:55 18:16 Blood Pressure 270/138 H 270/138 H Blood Pressure 280/146 H [Upper Arm] 11/26/16 11/26/16 11/26/16 19:12 19:17 19:32 Blood Pressure 195/116 H 201/101 H 188/103 H Blood Pressure [Upper Arm] 11/26/16 19:47 Blood Pressure 193/101 H Blood Pressure [Upper Arm] (2) PRES (posterior reversible encephalopathy syndrome) Is this a current diagnosis for this admission?: Yes Plan: At this time the neuroradiologist has reviewed her MRI and there is concern for progress. We will place patient on seizure precautions. If patient does have a seizure, she will need to be loaded with 1 g of Dilantin. Initial read of the MRI was for a small stroke at the level of the mid to left. This is also still a possibility. Continue PT/OT consult. Mend examination. Have discussed this case with Dr. Kennedy of [facility]. (3) Hyperlipidemia LDL goal <70 Is this a current diagnosis for this admission?: Yes Plan: Initiate patient on simvastatin (4) Tobacco abuse Is this a current diagnosis for this admission?: Yes Plan: As soon as blood pressures under control will prescribe nicotine patch.. Have encouraged cessation. (5) Elevated troponin Is this a current diagnosis for this admission?: Yes Plan: This is likely secondary to cardiac strain. - Time Time Spent with patient: 35 or more minutes Critical Time spent with patient: 35 or more minutes
[2016-11-27] MEDS: SENNOSIDES/DOCUSATE 8.6-50 MG 1 EACH TABLET PO SCH (21:40)
[2016-11-27] MEDS: SIMVASTATIN 40 MG TABLET PO SCH (21:40)
[2016-11-27] MEDS ORDERED: SIMVASTATIN 40 MG TABLET PO SCH (22:00)
[2016-11-28] MEDS ORDERED: ENALAPRILAT DIHYDRATE INJ/PF 2.5 MG/2 ML SDV IV ONE ×2 (03:53→04:00)
[2016-11-28] MEDS ORDERED: NICARDIPINE HCL RTU, ISO-OS 20 MG/200 ML RTUINJ IV ONE (04:40)
[2016-11-28] MEDS: NICARDIPINE HCL RTU, ISO-OS 20 MG/200 ML RTUINJ IV PRN ×3 (08:17→17:20)
[2016-11-28] MEDS: LABETALOL HCL INJ 20 MG/4 ML DISP.SYRIN IV PRN ×2 (08:18→17:20)
[2016-11-28] MEDS: LISINOPRIL 10 MG TABLET PO SCH ×2 (09:04→22:53)
[2016-11-28] MEDS: DOCUSATE SODIUM 100 MG CAPSULE PO SCH ×2 (09:05→17:19)
[2016-11-28] MEDS: HYDROCHLOROTHIAZIDE 25 MG TABLET PO SCH (09:05)
[2016-11-28] MEDS: ASPIRIN 325 MG TABLET, ENT COATED PO SCH (09:05)
[2016-11-28] MEDS: ENOXAPARIN SODIUM INJ 40 MG/0.4 ML DISP.SYRIN SUBCUT SCH (09:06)
[2016-11-28] MEDS ORDERED: CLONIDINE 0.1 MG/24 HR PATCH.TDWK TD SCH (10:00)
[2016-11-28] MEDS ORDERED: LORAZEPAM INJ 2 MG/1 ML VIAL IV ONE (17:17)
[2016-11-28] MEDS: ACETAMINOPHEN 325 MG TABLET PO PRN (17:19)
--- NOTE | 2016-11-28 17:20 | PDOC PROGRESS REPORT ---
Subjective Progress Note for:: 11/28/16 Subjective:: Patient currently back on Cardene when I see her. Patient notes some difficulty with her vision and her nystagmus is persistent. She continues to be ataxic. Patient denies chest pain, shortness of breath, abdominal pain, nausea, vomiting , fevers, chills, diarrhea, constipation. Physical Exam Vital Signs: Temp Pulse Resp BP Pulse Ox 98.4 F 65 14 202/99 H 97 11/28/16 04:00 11/28/16 04:00 11/28/16 06:19 11/28/16 06:19 11/28/16 06:19 Intake & Output 11/27/16 11/28/16 11/29/16 06:59 06:59 06:59 Intake Total 353 4442 Output Total 200 4100 Balance 153 342 Weight 69.4 kg 75.5 kg Exam: General: Awake alert and oriented x3, no acute respiratory distress HEENT: AT/NC, PERRL, oropharynx is moist, pink, no scleral icterus, no conjunctival injection Neck: No JVD, trachea midline Chest: Clear to auscultation bilaterally, no wheezes rhonchi or rales CV: Regular rate and rhythm, normal S1 and S2, no murmur, rub, gallop Abdomen: Soft, nontender to palpation, nondistended, active bowel sounds; no rebound, rigidity, or guarding Extremities: No cyanosis, clubbing or edema Neuro: nystagmus, right eye lateral devation. +FTN, +lean to right; ataxia; vertigo; awake alert and oriented x3 Psych: Normal mood and affect Results Laboratory Results: 11/27/16 05:00 11/27/16 05:00 11/26/16 11/27/16 11/27/16 22:44 05:00 10:49 CK-MB (CK-2) 1.74 2.77 4.23 Troponin I 0.090 0.164 0.418 Impressions: Chest X-Ray 11/26/16 18:01 IMPRESSION: Cardiac silhouette is at the upper limits of normal in size. No acute consolidations or pleural effusions are identified. Other findings as noted above Head CT 11/26/16 18:23 IMPRESSION: NORMAL BRAIN CT WITHOUT CONTRAST. EVIDENCE OF ACUTE STROKE: NO. Brain MRI with MRA 11/27/16 00:00 IMPRESSION: NORMAL MRA OF THE [place] OF [place]. Head MRI 11/27/16 00:00 IMPRESSION: Diffuse confluent and focal areas of abnormal signal intensity in the periventricular white matter on the FLAIR sequence as noted above. Will this may only represent small vessel ischemic changes, the possibility of a demyelinating process such is in mass cannot be excluded. Clinical correlation is recommended. Focal area of abnormal signal intensity on the diffusion weighted sequence at the level of the medulla on the right consistent with an area of recent infarction. Other findings as noted above EVIDENCE OF ACUTE STROKE: NO. Neck MRA 11/27/16 00:00 IMPRESSION: NO SIGNIFICANT STENOSIS. Assessment & Plan - Diagnosis (1) Hypertensive emergency Is this a current diagnosis for this admission?: Yes Plan: Patient presented with acute neurologic findings and an exceptionally elevated blood pressure. Goal blood pressure to 160/90 in light of her acute neurologic findings. Currently on Cardene drip. Initiate oral medications including lisinopril, hydrochlorthiazide, and hydralazine. Labetalol as needed. (2) PRES (posterior reversible encephalopathy syndrome) Is this a current diagnosis for this admission?: Yes Plan: At this time the neuroradiologist has reviewed her MRI and there is concern for progress. We will place patient on seizure precautions. If patient does have a seizure, she will need to be loaded with 1 g of Dilantin. Initial read of the MRI was for a small stroke at the level of the medulla. Continue PT/OT consult. Mend examination. She will need rehabilitation (3) Hyperlipidemia LDL goal <70 Is this a current diagnosis for this admission?: Yes Plan: Initiate patient on simvastatin (4) Tobacco abuse Is this a current diagnosis for this admission?: Yes Plan: As soon as blood pressures under control will prescribe nicotine patch.. Have encouraged cessation. (5) Elevated troponin Is this a current diagnosis for this admission?: Yes Plan: This is likely secondary to cardiac strain. Trending down and improving. - Time Time Spent with patient: 35 or more minutes Medications reviewed and adjusted accordingly: Yes Anticipated discharge: Acute Rehab
[2016-11-28] MEDS ORDERED: AMLODIPINE BESYLATE 5 MG TABLET PO ONE (18:15)
[2016-11-28] MEDS: SENNOSIDES/DOCUSATE 8.6-50 MG 1 EACH TABLET PO SCH (22:53)
[2016-11-28] MEDS: HYDRALAZINE HCL 50 MG TABLET PO SCH (22:54)
[2016-11-28] MEDS: SIMVASTATIN 40 MG TABLET PO SCH (22:54)
[2016-11-28] MEDS: AMLODIPINE BESYLATE 5 MG TABLET PO SCH (22:54)
[2016-11-29] MEDS: LABETALOL HCL INJ 20 MG/4 ML DISP.SYRIN IV PRN (05:23)
[2016-11-29] MEDS: HYDRALAZINE HCL 50 MG TABLET PO SCH ×3 (05:23→21:45)
[2016-11-29 06:06] LABS: ANION GAP 10 (5-19); BLOOD UREA NITROGEN 30 mg/dL (7-20); CALCIUM 9.3 mg/dL (8.4-10.2); CARBON DIOXIDE 27 mmol/L (22-30); CHLORIDE 103 mmol/L (98-107); CREATININE RESULT 1.36 mg/dL (0.52-1.25); GLUCOSE 101 mg/dL (75-110); SODIUM 139.7 mmol/L (137-145)
[2016-11-29] MEDS ORDERED: CLONIDINE HCL 0.2 MG TABLET PO ONE (09:15)
[2016-11-29] MEDS: LISINOPRIL 10 MG TABLET PO SCH ×2 (10:01→21:46)
[2016-11-29] MEDS: DOCUSATE SODIUM 100 MG CAPSULE PO SCH ×2 (10:02→17:32)
[2016-11-29] MEDS: HYDROCHLOROTHIAZIDE 25 MG TABLET PO SCH (10:02)
[2016-11-29] MEDS: ASPIRIN 325 MG TABLET, ENT COATED PO SCH (10:02)
[2016-11-29] MEDS: ENOXAPARIN SODIUM INJ 40 MG/0.4 ML DISP.SYRIN SUBCUT SCH (10:03)
--- NOTE | 2016-11-29 10:34 | RADIOLOGY REPORT (SQ) ---
EXAM DESCRIPTION: U/S LTD DUPLEX ART/LIO FLOW COMPLETED DATE/TIME: 11/29/2016 9:43 am REASON FOR STUDY: concern for ELÍAS COMPARISON: None. TECHNIQUE: Realtime and static grayscale images acquired. Selected color Doppler, velocities and spe ctral images recorded. LIMITATIONS: Body habitus. Overlying bowel gas. FINDINGS: Both kidneys are normal in size. Proximal renal arteries are not well visualized. Veloci ties are within normal limits in the visualized portions of the renal arteries. Renal aortic velocit ies are within normal limits. IMPRESSION: NO DOPPLER EVIDENCE OF HEMODYNAMICALLY SIGNIFICANT RENAL ARTERY STENOSIS. COMMENT: NORMAL RENAL ARTERY/AORTA VELOCITY RATIO IS LESS THAN OR EQUAL TO 3.5. TECHNICAL DOCUMENTATION: JOB ID: [id number] [employer]- All Rights Reserved
[2016-11-29] MEDS ORDERED: INFLUENZA ADLT QUAD (36MOS+) 2017-18 VAC 0.5 ML SYR IM PRN (11:15)
[2016-11-29] MEDS: CLONIDINE HCL 0.2 MG TABLET PO SCH ×2 (13:18→21:46)
--- NOTE | 2016-11-29 16:03 | PDOC PROGRESS REPORT ---
Subjective Progress Note for:: 11/29/16 Subjective:: Patient currently off Cardene when I see her. Patient notes her vision is somewhat improved, but still blurry. Patient is still somewhat ataxic. Patient denies chest pain, shortness of breath, abdominal pain, nausea, vomiting , fevers, chills, diarrhea, constipation. Physical Exam Vital Signs: Temp Pulse Resp BP Pulse Ox 98.1 F 68 17 136/74 H 94 11/29/16 12:00 11/29/16 12:00 11/29/16 14:45 11/29/16 14:27 11/29/16 14:45 Intake & Output 11/28/16 11/29/16 11/30/16 06:59 06:59 06:59 Intake Total 4442 919 Output Total 4100 3950 300 Balance 342 -8548 -300 Weight 75.5 kg 76.2 kg Exam: General: Awake alert and oriented x3, no acute respiratory distress HEENT: AT/NC, PERRL, oropharynx is moist, pink, no scleral icterus, no conjunctival injection Neck: No JVD, trachea midline Chest: Clear to auscultation bilaterally, no wheezes rhonchi or rales CV: Regular rate and rhythm, normal S1 and S2, no murmur, rub, gallop Abdomen: Soft, nontender to palpation, nondistended, active bowel sounds; no rebound, rigidity, or guarding Extremities: No cyanosis, clubbing or edema Neuro: nystagmus, right eye lateral devation. +FTN; ataxia; awake alert and oriented x3 Psych: Normal mood and affect Results Laboratory Results: 11/27/16 05:00 11/29/16 05:43 11/29/16 05:43 Sodium 139.7 Potassium 4.0 Chloride 103 Carbon Dioxide 27 Anion Gap 10 BUN 30 H Creatinine 1.36 H Est GFR ( Amer) 50 L Est GFR (Non-Af Amer) 42 L Glucose 101 Calcium 9.3 11/26/16 11/27/16 11/27/16 22:44 05:00 10:49 CK-MB (CK-2) 1.74 2.77 4.23 Troponin I 0.090 0.164 0.418 11/28/16 11/28/16 11/28/16 06:39 12:42 18:17 CK-MB (CK-2) Troponin I 0.329 0.186 0.209 11/29/16 00:28 CK-MB (CK-2) Troponin I 0.220 Impressions: Chest X-Ray 11/26/16 18:01 IMPRESSION: Cardiac silhouette is at the upper limits of normal in size. No acute consolidations or pleural effusions are identified. Other findings as noted above Head CT 11/26/16 18:23 IMPRESSION: NORMAL BRAIN CT WITHOUT CONTRAST. EVIDENCE OF ACUTE STROKE: NO. Brain MRI with MRA 11/27/16 00:00 IMPRESSION: NORMAL MRA OF THE [place] OF [place]. Head MRI 11/27/16 00:00 IMPRESSION: Diffuse confluent and focal areas of abnormal signal intensity in the periventricular white matter on the FLAIR sequence as noted above. Will this may only represent small vessel ischemic changes, the possibility of a demyelinating process such is in mass cannot be excluded. Clinical correlation is recommended. Focal area of abnormal signal intensity on the diffusion weighted sequence at the level of the medulla on the right consistent with an area of recent infarction. Other findings as noted above EVIDENCE OF ACUTE STROKE: NO. Neck MRA 11/27/16 00:00 IMPRESSION: NO SIGNIFICANT STENOSIS. Vascular Ultrasound 11/29/16 00:00 IMPRESSION: NO DOPPLER EVIDENCE OF HEMODYNAMICALLY SIGNIFICANT RENAL ARTERY STENOSIS. Assessment & Plan - Diagnosis (1) Hypertensive emergency Is this a current diagnosis for this admission?: Yes Plan: Patient presented with acute neurologic findings and an exceptionally elevated blood pressure. Patient now off Cardene. Generic Name Dose Route Start Last Admin Trade Name Freq PRN Reason Stop Dose Admin Hydrochlorothiazide 25 mg 11/27/16 10:00 11/29/16 10:02 Hydrodiuril 25 Mg Tablet PO 12/27/16 09:59 25 mg DAILY JEROMY Lisinopril 20 mg 11/27/16 10:00 11/29/16 10:01 Prinivil 10 Mg Tablet PO 12/27/16 09:59 20 mg Q12 JEROMY Amlodipine Besylate 5 mg 11/28/16 22:00 11/28/16 22:54 Norvasc 5 Mg Tablet PO 12/28/16 21:59 5 mg QHS JEROMY Clonidine 0.2 mg 11/29/16 14:00 11/29/16 13:18 Catapres 0.2 Mg Tablet PO 12/29/16 13:59 0.2 mg Q8 JEROMY Hydralazine HCl 50 mg 11/28/16 22:00 11/29/16 13:17 Apresoline 50 Mg Tablet PO 12/28/16 21:59 50 mg Q8 [facility] Have send urine metanephrines and serum metanephrines. Renal ultrasound for ELÍAS is negative (2) PRES (posterior reversible encephalopathy syndrome) Is this a current diagnosis for this admission?: Yes Plan: At this time the neuroradiologist has reviewed her MRI and there is concern for PRES. We will place patient on seizure precautions. If patient does have a seizure, she will need to be loaded with 1 g of Dilantin. Initial read of the MRI was positive for a small stroke at the level of the medulla. Continue PT, aspirin, statin, and blood pressure control. She will need rehabilitation (3) Hyperlipidemia LDL goal <70 Is this a current diagnosis for this admission?: Yes Plan: Patient on simvastatin Will monitor for rhabdomyolysis in light of her concurrent use of Norvasc (4) Tobacco abuse Is this a current diagnosis for this admission?: Yes Plan: nicotine patch prn. Have encouraged cessation. (5) Elevated troponin Is this a current diagnosis for this admission?: Yes Plan: This is likely secondary to cardiac strain. Trending down and improving. - Time Time Spent with patient: 25-34 minutes Medications reviewed and adjusted accordingly: Yes Anticipated discharge: Acute Rehab Within: when bed available
[2016-11-29] MEDS ORDERED: NICOTINE 14 MG/24 HR PATCH.TD24 TD ONE (16:15)
[2016-11-29] MEDS: SIMVASTATIN 40 MG TABLET PO SCH (21:46)
[2016-11-29] MEDS: SENNOSIDES/DOCUSATE 8.6-50 MG 1 EACH TABLET PO SCH (21:46)
[2016-11-29] MEDS: AMLODIPINE BESYLATE 5 MG TABLET PO SCH (21:47)
[2016-11-30] MEDS: HYDRALAZINE HCL 50 MG TABLET PO SCH ×3 (04:36→21:35)
[2016-11-30] MEDS: CLONIDINE HCL 0.2 MG TABLET PO SCH ×3 (04:36→21:36)
[2016-11-30 06:21] LABS: ANION GAP 12 (5-19); BLOOD UREA NITROGEN 42 mg/dL (7-20); CALCIUM 10.2 mg/dL (8.4-10.2); CARBON DIOXIDE 27 mmol/L (22-30); CHLORIDE 101 mmol/L (98-107); GLUCOSE 103 mg/dL (75-110); POTASSIUM 4.4 mmol/L (3.6-5.0); SODIUM 139.6 mmol/L (137-145)
[2016-11-30] MEDS: HYDROCHLOROTHIAZIDE 25 MG TABLET PO SCH (09:52)
[2016-11-30] MEDS: NICOTINE 14 MG/24 HR PATCH.TD24 TD SCH (09:52)
[2016-11-30] MEDS: DOCUSATE SODIUM 100 MG CAPSULE PO SCH ×2 (09:52→17:18)
[2016-11-30] MEDS: LISINOPRIL 10 MG TABLET PO SCH ×2 (09:53→21:36)
[2016-11-30] MEDS: ASPIRIN 325 MG TABLET, ENT COATED PO SCH (09:53)
[2016-11-30] MEDS: ENOXAPARIN SODIUM INJ 40 MG/0.4 ML DISP.SYRIN SUBCUT SCH (09:53)
--- NOTE | 2016-11-30 11:11 | PDOC PROGRESS REPORT ---
Subjective Progress Note for:: 11/30/16 Subjective:: Complains of dizziness. Also blurry vision Physical Exam Vital Signs: Temp Pulse Resp BP Pulse Ox 97.8 F 53 L 16 141/85 H 97 11/30/16 08:00 11/30/16 08:14 11/30/16 08:00 11/30/16 08:03 11/30/16 08:02 Intake & Output 11/29/16 11/30/16 12/01/16 06:59 06:59 06:59 Intake Total 919 290 240 Output Total 3950 1500 30 Balance -3031 -1210 210 Weight 76.2 kg 72.5 kg General appearance: PRESENT: no acute distress Eye exam: PRESENT: conjunctiva pink, nystagmus. ABSENT: scleral icterus Mouth exam: PRESENT: moist, tongue midline Neck exam: ABSENT: JVD Respiratory exam: PRESENT: clear to auscultation surjit. ABSENT: rales, rhonchi, wheezes Cardiovascular exam: PRESENT: RRR. ABSENT: diastolic murmur, rubs, systolic murmur GI/Abdominal exam: PRESENT: normal bowel sounds, soft. ABSENT: distended, guarding, mass, organolmegaly, rebound, tenderness Extremities exam: ABSENT: calf tenderness, clubbing, pedal edema Neurological exam: PRESENT: alert, awake, oriented to person, oriented to place , oriented to time, oriented to situation. ABSENT: CN II-XII grossly intact - Nystagmus right worse than left, motor sensory deficit Psychiatric exam: PRESENT: appropriate affect Skin exam: PRESENT: dry, intact, warm. ABSENT: cyanosis, rash Results Laboratory Results: 11/27/16 05:00 11/30/16 05:41 11/30/16 05:41 Sodium 139.6 Potassium 4.4 Chloride 101 Carbon Dioxide 27 Anion Gap 12 BUN 42 H Creatinine 1.60 H Est GFR ( Amer) 42 L Est GFR (Non-Af Amer) 35 L Glucose 103 Calcium 10.2 11/26/16 11/27/16 11/27/16 22:44 05:00 10:49 CK-MB (CK-2) 1.74 2.77 4.23 Troponin I 0.090 0.164 0.418 11/28/16 11/28/16 11/28/16 06:39 12:42 18:17 CK-MB (CK-2) Troponin I 0.329 0.186 0.209 11/29/16 00:28 CK-MB (CK-2) Troponin I 0.220 Impressions: Chest X-Ray 11/26/16 18:01 IMPRESSION: Cardiac silhouette is at the upper limits of normal in size. No acute consolidations or pleural effusions are identified. Other findings as noted above Head CT 11/26/16 18:23 IMPRESSION: NORMAL BRAIN CT WITHOUT CONTRAST. EVIDENCE OF ACUTE STROKE: NO. Brain MRI with MRA 11/27/16 00:00 IMPRESSION: NORMAL MRA OF THE [place] OF [place]. Head MRI 11/27/16 00:00 IMPRESSION: Diffuse confluent and focal areas of abnormal signal intensity in the periventricular white matter on the FLAIR sequence as noted above. Will this may only represent small vessel ischemic changes, the possibility of a demyelinating process such is in mass cannot be excluded. Clinical correlation is recommended. Focal area of abnormal signal intensity on the diffusion weighted sequence at the level of the medulla on the right consistent with an area of recent infarction. Other findings as noted above EVIDENCE OF ACUTE STROKE: NO. Neck MRA 11/27/16 00:00 IMPRESSION: NO SIGNIFICANT STENOSIS. Vascular Ultrasound 11/29/16 00:00 IMPRESSION: NO DOPPLER EVIDENCE OF HEMODYNAMICALLY SIGNIFICANT RENAL ARTERY STENOSIS. Assessment & Plan - Diagnosis (1) Hypertensive emergency Is this a current diagnosis for this admission?: Yes Plan: Patient's blood pressures have improved. She can be moved out of the intensive care unit to the floor. Will continue with current therapy. (2) PRES (posterior reversible encephalopathy syndrome) Is this a current diagnosis for this admission?: Yes Plan: This is improving with control of her blood pressure. She does have an abnormality resulting in nystagmus. Will start physical therapy. (3) Hyperlipidemia LDL goal <70 Is this a current diagnosis for this admission?: Yes Plan: Continue Zocor. (4) Elevated troponin Is this a current diagnosis for this admission?: Yes Plan: Most likely secondary to hypertensive emergency. Continue with aspirin. - Time Time Spent with patient: 25-34 minutes - Inpatient Certification Medical Necessity: Need Close Monitoring Due to Risk of Patient Decompensation - Plan Summary Plan Summary: We will transfer to the floor today.
[2016-11-30] MEDS: AMLODIPINE BESYLATE 5 MG TABLET PO SCH (21:34)
[2016-11-30] MEDS: SIMVASTATIN 40 MG TABLET PO SCH (21:35)
[2016-11-30] MEDS: SENNOSIDES/DOCUSATE 8.6-50 MG 1 EACH TABLET PO SCH (21:36)
[2016-12-01 04:31] LABS: ABSOLUTE BASOPHILS # (AUTO) 0.1 10^3/uL (0.0-0.2); ABSOLUTE EOSINOPHILS # (AUTO) 0.1 10^3/uL (0.0-0.6); ABSOLUTE LYMPHOCYTES (AUTO) 1.9 10^3/uL (0.5-4.7); ABSOLUTE MONOCYTES (AUTO) 0.8 10^3/uL (0.1-1.4); BASOPHILS % (AUTO) 0.6 % (0-2); EOSINOPHILS % (AUTO) 0.8 % (0-6); HEMATOCRIT 39.1 % (36.0-47.0); HEMOGLOBIN 12.8 g/dL (12.0-15.5); HGB HCT DIFFERENCE -0.7; LYMPHOCYTES % (AUTO) 11.7 % (13-45); MEAN CORPUSCULAR HEMOGLOBIN 26.1 pg (27.0-33.4); MEAN CORPUSCULAR HGB CONC 32.7 g/dL (32.0-36.0); MEAN CORPUSCULAR VOLUME 80 fl (80-97); MONOCYTES % (AUTO) 5.3 % (3-13); RED BLOOD COUNT 4.92 10^6/uL (3.72-5.28); RED CELL DISTRIBUTION WIDTH 16.8 % (11.5-14.0); SEGMENTED NEUTROPHILS % (AUTO) 81.6 % (42-78)
[2016-12-01 04:58] LABS: ANION GAP 12 (5-19); CALCIUM 10.8 mg/dL (8.4-10.2); CARBON DIOXIDE 26 mmol/L (22-30); CHLORIDE 102 mmol/L (98-107); CREATININE RESULT 1.92 mg/dL (0.52-1.25); GLUCOSE 111 mg/dL (75-110); POTASSIUM 4.5 mmol/L (3.6-5.0); SODIUM 140.1 mmol/L (137-145)
[2016-12-01 05:10] LABS: BLOOD UREA NITROGEN 63 mg/dL (7-20)
[2016-12-01] MEDS: HYDRALAZINE HCL 50 MG TABLET PO SCH ×3 (05:51→22:12)
[2016-12-01] MEDS: CLONIDINE HCL 0.2 MG TABLET PO SCH ×3 (05:52→22:12)
[2016-12-01] MEDS: ENOXAPARIN SODIUM INJ 40 MG/0.4 ML DISP.SYRIN SUBCUT SCH (09:56)
[2016-12-01] MEDS: DOCUSATE SODIUM 100 MG CAPSULE PO SCH ×2 (09:57→18:18)
[2016-12-01] MEDS: NICOTINE 14 MG/24 HR PATCH.TD24 TD SCH (09:57)
[2016-12-01] MEDS: ASPIRIN 325 MG TABLET, ENT COATED PO SCH (09:57)
[2016-12-01] MEDS: NORMAL SALINE 1000 ML 1,000 ML IV PRN ×2 (10:03→15:30)
[2016-12-01] MEDS: HYDROCHLOROTHIAZIDE 25 MG TABLET PO SCH (10:35)
[2016-12-01] MEDS: LISINOPRIL 10 MG TABLET PO SCH ×2 (10:35→22:12)
--- NOTE | 2016-12-01 11:38 | PDOC PROGRESS REPORT ---
Subjective Progress Note for:: 12/01/16 Subjective:: Continues to have dizziness. Physical Exam Vital Signs: Temp Pulse Resp BP Pulse Ox 98.7 F 66 18 132/76 H 98 12/01/16 08:00 12/01/16 08:00 12/01/16 08:00 12/01/16 08:00 12/01/16 08:00 Intake & Output 11/30/16 12/01/16 12/02/16 06:59 06:59 06:59 Intake Total 290 595 Output Total 1500 30 Balance -1210 565 Weight 72.5 kg 72 kg General appearance: PRESENT: no acute distress Eye exam: PRESENT: conjunctiva pink, nystagmus. ABSENT: scleral icterus Mouth exam: PRESENT: moist, tongue midline Neck exam: ABSENT: JVD Respiratory exam: PRESENT: clear to auscultation surjit. ABSENT: rales, rhonchi, wheezes Cardiovascular exam: PRESENT: RRR. ABSENT: diastolic murmur, rubs, systolic murmur GI/Abdominal exam: PRESENT: normal bowel sounds, soft. ABSENT: distended, guarding, mass, organolmegaly, rebound, tenderness Rectal exam: PRESENT: deferred Extremities exam: ABSENT: calf tenderness, clubbing, pedal edema Neurological exam: PRESENT: alert, awake, oriented to person, oriented to place , oriented to time, oriented to situation. ABSENT: CN II-XII grossly intact - Ataxia with nystagmus of the right eye greater than left eye, motor sensory deficit Psychiatric exam: PRESENT: appropriate affect Skin exam: PRESENT: dry, intact, warm. ABSENT: cyanosis, rash Results Laboratory Results: 12/01/16 04:17 12/01/16 04:17 12/01/16 12/01/16 04:17 04:17 WBC 16.0 H RBC 4.92 Hgb 12.8 Hct 39.1 MCV 80 MCH 26.1 L MCHC 32.7 RDW 16.8 H Plt Count 275 Seg Neutrophils % 81.6 H Lymphocytes % 11.7 L Monocytes % 5.3 Eosinophils % 0.8 Basophils % 0.6 Absolute Neutrophils 13.0 H Absolute Lymphocytes 1.9 Absolute Monocytes 0.8 Absolute Eosinophils 0.1 Absolute Basophils 0.1 Sodium 140.1 Potassium 4.5 Chloride 102 Carbon Dioxide 26 Anion Gap 12 BUN 63 H D Creatinine 1.92 H Est GFR ( Amer) 34 L Est GFR (Non-Af Amer) 28 L Glucose 111 H Calcium 10.8 H 11/26/16 11/27/16 11/27/16 22:44 05:00 10:49 CK-MB (CK-2) 1.74 2.77 4.23 Troponin I 0.090 0.164 0.418 11/28/16 11/28/16 11/28/16 06:39 12:42 18:17 CK-MB (CK-2) Troponin I 0.329 0.186 0.209 11/29/16 00:28 CK-MB (CK-2) Troponin I 0.220 Impressions: Chest X-Ray 11/26/16 18:01 IMPRESSION: Cardiac silhouette is at the upper limits of normal in size. No acute consolidations or pleural effusions are identified. Other findings as noted above Head CT 11/26/16 18:23 IMPRESSION: NORMAL BRAIN CT WITHOUT CONTRAST. EVIDENCE OF ACUTE STROKE: NO. Brain MRI with MRA 11/27/16 00:00 IMPRESSION: NORMAL MRA OF THE [place]. Head MRI 11/27/16 00:00 IMPRESSION: Diffuse confluent and focal areas of abnormal signal intensity in the periventricular white matter on the FLAIR sequence as noted above. Will this may only represent small vessel ischemic changes, the possibility of a demyelinating process such is in mass cannot be excluded. Clinical correlation is recommended. Focal area of abnormal signal intensity on the diffusion weighted sequence at the level of the medulla on the right consistent with an area of recent infarction. Other findings as noted above EVIDENCE OF ACUTE STROKE: NO. Neck MRA 11/27/16 00:00 IMPRESSION: NO SIGNIFICANT STENOSIS. Vascular Ultrasound 11/29/16 00:00 IMPRESSION: NO DOPPLER EVIDENCE OF HEMODYNAMICALLY SIGNIFICANT RENAL ARTERY STENOSIS. Assessment & Plan - Diagnosis (1) Hypertensive emergency Is this a current diagnosis for this admission?: Yes Plan: Patient's blood pressures have improved. She can be moved out of the intensive care unit to the floor. Will continue with current therapy. (2) PRES (posterior reversible encephalopathy syndrome) Is this a current diagnosis for this admission?: Yes Plan: This is improving with control of her blood pressure. She does have an abnormality resulting in nystagmus. Will start physical therapy. (3) Hyperlipidemia LDL goal <70 Is this a current diagnosis for this admission?: Yes Plan: Continue Zocor. (4) Elevated troponin Is this a current diagnosis for this admission?: Yes Plan: Most likely secondary to hypertensive emergency. Continue with aspirin. (5) Acute renal failure Is this a current diagnosis for this admission?: Yes Plan: The patient's creatinine continues to increase. Will give IV fluids. Will consult nephrology when they are available. - Time Time Spent with patient: 25-34 minutes - Inpatient Certification Medical Necessity: Need Close Monitoring Due to Risk of Patient Decompensation - Plan Summary Plan Summary: Patient is still in intensive care unit but has transfer orders to move out to the floor when a bed is available. Will continue with physical therapy as tolerated.
[2016-12-01 11:40] LABS: NORMETANEPHRINE 72 pg/mL (0-145)
[2016-12-01 12:01] LABS: METANEPHRINE 28 pg/mL (0-62)
[2016-12-01] MEDS: AMLODIPINE BESYLATE 5 MG TABLET PO SCH (22:12)
[2016-12-01] MEDS: SIMVASTATIN 40 MG TABLET PO SCH (22:13)
[2016-12-01] MEDS: SENNOSIDES/DOCUSATE 8.6-50 MG 1 EACH TABLET PO SCH (22:13)
[2016-12-02] MEDS: NORMAL SALINE 1000 ML 1,000 ML IV PRN ×2 (00:47→08:10)
[2016-12-02] MEDS: HYDRALAZINE HCL 50 MG TABLET PO SCH ×2 (05:12→16:36)
[2016-12-02] MEDS: CLONIDINE HCL 0.2 MG TABLET PO SCH ×2 (05:12→16:34)
[2016-12-02 05:51] LABS: ABSOLUTE EOSINOPHILS # (AUTO) 0.1 10^3/uL (0.0-0.6); ABSOLUTE LYMPHOCYTES (AUTO) 1.6 10^3/uL (0.5-4.7); ABSOLUTE MONOCYTES (AUTO) 0.9 10^3/uL (0.1-1.4); BASOPHILS % (AUTO) 0.4 % (0-2); EOSINOPHILS % (AUTO) 0.9 % (0-6); HEMATOCRIT 35.4 % (36.0-47.0); HEMOGLOBIN 11.7 g/dL (12.0-15.5); HGB HCT DIFFERENCE -0.3; LYMPHOCYTES % (AUTO) 12.6 % (13-45); MEAN CORPUSCULAR HEMOGLOBIN 26.5 pg (27.0-33.4); MEAN CORPUSCULAR VOLUME 80 fl (80-97); MONOCYTES % (AUTO) 6.9 % (3-13); RED BLOOD COUNT 4.41 10^6/uL (3.72-5.28); RED CELL DISTRIBUTION WIDTH 16.5 % (11.5-14.0); SEGMENTED NEUTROPHILS % (AUTO) 79.2 % (42-78); WHITE BLOOD COUNT 12.6 10^3/uL (4.0-10.5)
[2016-12-02 06:13] LABS: ANION GAP 13 (5-19); BLOOD UREA NITROGEN 47 mg/dL (7-20); CALCIUM 9.3 mg/dL (8.4-10.2); CARBON DIOXIDE 20 mmol/L (22-30); CHLORIDE 109 mmol/L (98-107); GLUCOSE 74 mg/dL (75-110); POTASSIUM 3.9 mmol/L (3.6-5.0); SODIUM 142.2 mmol/L (137-145)
[2016-12-02] MEDS: ENOXAPARIN SODIUM INJ 40 MG/0.4 ML DISP.SYRIN SUBCUT SCH (10:38)
[2016-12-02] MEDS: ASPIRIN 325 MG TABLET, ENT COATED PO SCH (10:39)
[2016-12-02] MEDS: LISINOPRIL 10 MG TABLET PO SCH (10:39)
[2016-12-02] MEDS: DOCUSATE SODIUM 100 MG CAPSULE PO SCH ×2 (10:39→17:19)
[2016-12-02] MEDS: HYDROCHLOROTHIAZIDE 25 MG TABLET PO SCH (10:40)
[2016-12-02] MEDS: NICOTINE 14 MG/24 HR PATCH.TD24 TD SCH (10:40)
--- NOTE | 2016-12-02 10:50 | PDOC PROGRESS REPORT ---
Subjective Progress Note for:: 12/02/16 Subjective:: Continues to have dizziness. Physical Exam Vital Signs: Temp Pulse Resp BP Pulse Ox 98.0 F 65 18 112/60 99 12/02/16 07:56 12/02/16 07:56 12/02/16 07:56 12/02/16 07:56 12/02/16 07:56 Intake & Output 12/01/16 12/02/16 12/03/16 06:59 06:59 06:59 Intake Total 595 2770 Output Total 30 900 Balance 565 1870 Weight 72 kg 74 kg General appearance: PRESENT: no acute distress Eye exam: PRESENT: conjunctiva pink, nystagmus. ABSENT: scleral icterus Mouth exam: PRESENT: moist, tongue midline Neck exam: ABSENT: JVD Respiratory exam: PRESENT: clear to auscultation surjit. ABSENT: rales, rhonchi, wheezes Cardiovascular exam: PRESENT: RRR. ABSENT: diastolic murmur, rubs, systolic murmur GI/Abdominal exam: PRESENT: normal bowel sounds, soft. ABSENT: distended, guarding, mass, organolmegaly, rebound, tenderness Extremities exam: ABSENT: calf tenderness, clubbing, pedal edema Neurological exam: PRESENT: alert, awake, oriented to person, oriented to place , oriented to time, oriented to situation. ABSENT: CN II-XII grossly intact - Nystagmus in the right greater than left, motor sensory deficit Psychiatric exam: PRESENT: appropriate affect Skin exam: PRESENT: dry, intact, warm. ABSENT: cyanosis, rash Results Laboratory Results: 12/02/16 04:29 12/02/16 04:29 12/02/16 12/02/16 04:29 04:29 WBC 12.6 H RBC 4.41 Hgb 11.7 L Hct 35.4 L MCV 80 MCH 26.5 L MCHC 33.0 RDW 16.5 H Plt Count 248 Seg Neutrophils % 79.2 H Lymphocytes % 12.6 L Monocytes % 6.9 Eosinophils % 0.9 Basophils % 0.4 Absolute Neutrophils 10.0 H Absolute Lymphocytes 1.6 Absolute Monocytes 0.9 Absolute Eosinophils 0.1 Absolute Basophils 0.0 Sodium 142.2 Potassium 3.9 Chloride 109 H Carbon Dioxide 20 L Anion Gap 13 BUN 47 H Creatinine 1.30 H Est GFR ( Amer) 53 L Est GFR (Non-Af Amer) 44 L Glucose 74 L Calcium 9.3 11/26/16 11/27/16 11/27/16 22:44 05:00 10:49 CK-MB (CK-2) 1.74 2.77 4.23 Troponin I 0.090 0.164 0.418 11/28/16 11/28/16 11/28/16 06:39 12:42 18:17 CK-MB (CK-2) Troponin I 0.329 0.186 0.209 11/29/16 00:28 CK-MB (CK-2) Troponin I 0.220 Impressions: Chest X-Ray 11/26/16 18:01 IMPRESSION: Cardiac silhouette is at the upper limits of normal in size. No acute consolidations or pleural effusions are identified. Other findings as noted above Head CT 11/26/16 18:23 IMPRESSION: NORMAL BRAIN CT WITHOUT CONTRAST. EVIDENCE OF ACUTE STROKE: NO. Brain MRI with MRA 11/27/16 00:00 IMPRESSION: NORMAL MRA OF THE [place] OF [place]. Head MRI 11/27/16 00:00 IMPRESSION: Diffuse confluent and focal areas of abnormal signal intensity in the periventricular white matter on the FLAIR sequence as noted above. Will this may only represent small vessel ischemic changes, the possibility of a demyelinating process such is in mass cannot be excluded. Clinical correlation is recommended. Focal area of abnormal signal intensity on the diffusion weighted sequence at the level of the medulla on the right consistent with an area of recent infarction. Other findings as noted above EVIDENCE OF ACUTE STROKE: NO. Neck MRA 11/27/16 00:00 IMPRESSION: NO SIGNIFICANT STENOSIS. Vascular Ultrasound 11/29/16 00:00 IMPRESSION: NO DOPPLER EVIDENCE OF HEMODYNAMICALLY SIGNIFICANT RENAL ARTERY STENOSIS. Assessment & Plan - Diagnosis (1) Hypertensive emergency Is this a current diagnosis for this admission?: Yes Plan: Blood pressures have been stable. (2) PRES (posterior reversible encephalopathy syndrome) Is this a current diagnosis for this admission?: Yes Plan: This is improving with control of her blood pressure. She does have an abnormality resulting in nystagmus. Will continue physical therapy. (3) Hyperlipidemia LDL goal <70 Is this a current diagnosis for this admission?: Yes Plan: Continue Zocor. (4) Elevated troponin Is this a current diagnosis for this admission?: Yes Plan: Most likely secondary to hypertensive emergency. Continue with aspirin. (5) Acute renal failure Is this a current diagnosis for this admission?: Yes Plan: The patient's creatinine has improved with IV fluids. Nephrology consultation will not be available until next week. - Time Time Spent with patient: 25-34 minutes - Inpatient Certification Medical Necessity: Need Close Monitoring Due to Risk of Patient Decompensation
--- NOTE | 2016-12-02 16:03 | RADIOLOGY REPORT (SQ) ---
EXAM DESCRIPTION: KOMALIE SWALLOW COMPLETED DATE/TIME: 12/02/2016 9:16 am REASON FOR STUDY: Dysphagia unspecified R 13.10, food in pharynx causing other injury, sequela T17.2 28S poss. aspiration of thin COMPARISON: None. TECHNIQUE: Videofluoroscopic swallowing examination was performed in conjunction with speech patholo gy. Videofluoroscopic imaging was obtained and reviewed and these are the findings: RADIATION DOSE: Total fluoroscopy time: 3 minutes 24 seconds 1 fluoroscopy image saved to PACS. LIMITATIONS: None FINDINGS: The patient was brought into the fluoro room and placed upright on a modified barium swall ow chair. The patient was then given multiple consistencies mixed with barium to swallow under live fluoroscopic video guidance. According to the Speech Pathologist there was laryngeal penetration and tracheal aspiration with thin, nectar, and post swallow residual consistencies. No significant angely y in oral or pharyngeal phase noted. Mild to moderate post swallow residual seen within the vallecul a and piriform sinuses. Please see speech pathology report for further details and recommendations. IMPRESSION: LARYNGEAL PENETRATION AND TRACHEAL ASPIRATION WITH THIN, NECTAR, AND POST SWALLOW RESIDU AL CONSISTENCIES.PLEASE SEE SPEECH PATHOLOGIST REPORT FOR OTHER FINDINGS AND RECOMMENDATIONS. COMMENT: Quality ID [id number]: Final reports for procedures using fluoroscopy that document radiation exp osure indices, or exposure time and number of fluorographic images (if radiation exposure indices are not available) TECHNICAL DOCUMENTATION: JOB ID: [id number] [employer]- All Rights Reserved
[2016-12-02] MEDS: ONDANSETRON HCL INJ/PF 4 MG/2 ML SDV IV PRN (18:03)
--- NOTE | 2016-12-02 18:03 | ST Inp Modified Barium Swallow ---
Medical Diagnosis - Medical Diagnoses Medical Diagnosis Description & ICD-10 Code(s): hypertensive emergency ST Inpatient [facility] [place] - General Date: 12/02/16 - History History Obtained From: Other - EMR -: Medical - Per EMR, patient has history of hypertension. Recently developed difficulty with vision and reported difficulty with swallowing, stating that liquids "get caught". No reported difficulty with solids. At bedside, significant change in vocal function noted with liquid trials. Medications: Medications Reviewed Allergies: No known allergies - Subjective Current Nutritional Means: PO Current PO Diet: Regular, Thickened liquids Current Symptoms: Wet/gurgly voice Pain: Patient reports, 0/5 - Objective Assessment: Upright, Left Lateral - Food Trials Food Trials Used: Thin liquids, Honey-thickened liquids, [facility] thick liquids, Pureed, Regular The Patient: Was Able to Self Feed - Assessment Labial Function: Within Normal Limits Lingual Function: Within Normal Limits Mandibular Function: Within Normal Limits Dentition: Full Laryngeal Function: Weak Cough - Pharyngeal Stage Initiation of Pharyngeal Stage: Normal Decreased Laryngeal Elevation: Yes Reduced Velo-Pharyngeal Closure: no Reduced Pressure Generation: Yes Reduced Tongue Base Retraction: No Pre-Swallowing Pooling in Valleculae: Moderate Pre-Swallowing Pooling in Pyriforms: Mild Reduced Thyro-Hyiod Approximation: Yes Reduced Epiglottic Excursion: Yes Multiple Swallows With: Effective - reduced some residue, required at least 3 swallows to eliminate Post Swallow Residuals in Valleculae: Mild, Moderate Post Swallow Residuals in Pyriforms: Moderate Pahryngeal Stage Comments: Generally reduced efficiency of swallow seen. Very limited epiglottic inversion, which resulted in increased residue in valleculae post swallow. Reduced pharyngeal constriction resulted in additional residue in pyriform sinus. Poor laryngeal elevation/hyolaryngeal excursion places patient at higher risk of compromised airway. - Impression/Summary Laryngeal Penetration: Yes, Deep, Delayed cough, during swallow - with thin liquids and nectar liquids Tracheal Aspiration: yes, delayed cough, during swallow - some aspiration of residue also seen Productive Cough: No Effective Clearing: no Effective Compensatory Strategies: throat clear & reswallow, hard swallow Ineffective Compensatory Strategies: chin tuck, chin down Patient Presents With: Pharyngeal stage dysph., Severe Risk of Aspiration: Moderate Risk of Nutritional Compromise: Mild Risk Due To: modified diet and high risk of aspiration - Recommendations Solid Diet Recommendations: Mechanical Soft, Ground Meat Liquid Diet Recommendations: Honey-Thick Strict Aspitarion Precautions: Yes Dysphagia Therapy with CARDIOPULMONARY PHYSICAL THERAPIST: Yes, Inpatient Recommended Techniques: Fully Upright During Meal, Med Crushed in Applesauce, Dry Swallow After Bite, Small Bites and Sips - Time Total Time: 25 Total Timed Minutes: 25
[2016-12-03] MEDS: SIMVASTATIN 40 MG TABLET PO SCH ×2 (00:24→21:31)
[2016-12-03] MEDS: CLONIDINE HCL 0.2 MG TABLET PO SCH ×4 (00:24→21:29)
[2016-12-03] MEDS: SENNOSIDES/DOCUSATE 8.6-50 MG 1 EACH TABLET PO SCH ×2 (00:24→21:31)
[2016-12-03] MEDS: LISINOPRIL 10 MG TABLET PO SCH ×3 (00:25→21:31)
[2016-12-03] MEDS: AMLODIPINE BESYLATE 5 MG TABLET PO SCH ×2 (00:25→21:30)
[2016-12-03] MEDS: HYDRALAZINE HCL 50 MG TABLET PO SCH ×4 (00:25→21:31)
[2016-12-03 05:55] LABS: ABSOLUTE BASOPHILS # (AUTO) 0.1 10^3/uL (0.0-0.2); ABSOLUTE EOSINOPHILS # (AUTO) 0.1 10^3/uL (0.0-0.6); ABSOLUTE LYMPHOCYTES (AUTO) 1.7 10^3/uL (0.5-4.7); ABSOLUTE MONOCYTES (AUTO) 0.8 10^3/uL (0.1-1.4); ABSOLUTE NEUT (AUTO) 7.8 10^3/uL (1.7-8.2); BASOPHILS % (AUTO) 0.5 % (0-2); EOSINOPHILS % (AUTO) 0.9 % (0-6); HEMATOCRIT 33.6 % (36.0-47.0); HEMOGLOBIN 11.2 g/dL (12.0-15.5); LYMPHOCYTES % (AUTO) 16.2 % (13-45); MEAN CORPUSCULAR HEMOGLOBIN 26.5 pg (27.0-33.4); MEAN CORPUSCULAR HGB CONC 33.4 g/dL (32.0-36.0); MEAN CORPUSCULAR VOLUME 79 fl (80-97); MONOCYTES % (AUTO) 7.9 % (3-13); RED BLOOD COUNT 4.23 10^6/uL (3.72-5.28); RED CELL DISTRIBUTION WIDTH 17.3 % (11.5-14.0); SEGMENTED NEUTROPHILS % (AUTO) 74.5 % (42-78); WHITE BLOOD COUNT 10.5 10^3/uL (4.0-10.5)
[2016-12-03 06:04] LABS: ANION GAP 9 (5-19); BLOOD UREA NITROGEN 39 mg/dL (7-20); CALCIUM 9.3 mg/dL (8.4-10.2); CARBON DIOXIDE 24 mmol/L (22-30); CHLORIDE 109 mmol/L (98-107); CREATININE RESULT 1.47 mg/dL (0.52-1.25); GLUCOSE 87 mg/dL (75-110); POTASSIUM 3.8 mmol/L (3.6-5.0); SODIUM 141.9 mmol/L (137-145)
[2016-12-03] MEDS ORDERED: MAGNESIUM HYDROXIDE SUSP 30 ML UDCUP PO PRN (09:00)
[2016-12-03 09:56] LABS: METANEPHRINE/CREAT RATIO URINE 0.5 (0.0-1.0)
[2016-12-03] MEDS: NICOTINE 14 MG/24 HR PATCH.TD24 TD SCH (11:05)
[2016-12-03] MEDS: ENOXAPARIN SODIUM INJ 40 MG/0.4 ML DISP.SYRIN SUBCUT SCH (11:05)
[2016-12-03] MEDS: DOCUSATE SODIUM 100 MG CAPSULE PO SCH ×2 (11:06→17:31)
[2016-12-03] MEDS: ASPIRIN 325 MG TABLET, ENT COATED PO SCH (11:06)
--- NOTE | 2016-12-03 17:46 | PDOC PROGRESS REPORT ---
Subjective Progress Note for:: 12/03/16 Subjective:: Patient continues to complain of right eye difficulty. She reports she has doubled and blurred vision in this eye. She is ambivalent but feels that sometimes it is painful. This was noted more when patient was given labetalol. Patient denies chest pain, shortness of breath, abdominal pain, nausea, vomiting , fevers, chills, diarrhea, constipation, headache. Physical Exam Vital Signs: Temp Pulse Resp BP Pulse Ox 98.3 F 65 20 131/75 H 97 12/03/16 16:00 12/03/16 16:00 12/03/16 16:00 12/03/16 16:00 12/03/16 16:00 Intake & Output 12/02/16 12/03/16 12/04/16 06:59 06:59 06:59 Intake Total 2770 1405 3 Output Total 900 Balance 1870 1405 3 Weight 74 kg 71.7 kg Exam: General: Awake alert and oriented x3, no acute respiratory distress HEENT: AT/NC, PERRL, oropharynx is moist, pink, no scleral icterus, no conjunctival injection Neck: No JVD, trachea midline Chest: Clear to auscultation bilaterally, no wheezes rhonchi or rales CV: Regular rate and rhythm, normal S1 and S2, no murmur, rub, gallop Abdomen: Soft, nontender to palpation, nondistended, active bowel sounds; no rebound, rigidity, or guarding Extremities: No cyanosis, clubbing or edema Neuro: nystagmus, right eye lateral devation. +FTN; ataxia; awake alert and oriented x3 Psych: Normal mood and affect Skin: Xanthelasma on bilateral eyes Results Laboratory Results: 12/03/16 05:17 12/03/16 05:12 12/03/16 12/03/16 05:12 05:17 WBC 10.5 RBC 4.23 Hgb 11.2 L Hct 33.6 L MCV 79 L MCH 26.5 L MCHC 33.4 RDW 17.3 H Plt Count 241 Seg Neutrophils % 74.5 Lymphocytes % 16.2 Monocytes % 7.9 Eosinophils % 0.9 Basophils % 0.5 Absolute Neutrophils 7.8 Absolute Lymphocytes 1.7 Absolute Monocytes 0.8 Absolute Eosinophils 0.1 Absolute Basophils 0.1 Sodium 141.9 Potassium 3.8 Chloride 109 H Carbon Dioxide 24 Anion Gap 9 BUN 39 H Creatinine 1.47 H Est GFR ( Amer) 46 L Est GFR (Non-Af Amer) 38 L Glucose 87 Calcium 9.3 11/27/16 17:42 Blood Blood Culture - Final NO GROWTH IN 5 DAYS 11/27/16 14:49 Blood Blood Culture - Final NO GROWTH IN 5 DAYS 11/26/16 11/27/16 11/27/16 22:44 05:00 10:49 CK-MB (CK-2) 1.74 2.77 4.23 Troponin I 0.090 0.164 0.418 11/28/16 11/28/16 11/28/16 06:39 12:42 18:17 CK-MB (CK-2) Troponin I 0.329 0.186 0.209 11/29/16 00:28 CK-MB (CK-2) Troponin I 0.220 Impressions: Chest X-Ray 11/26/16 18:01 IMPRESSION: Cardiac silhouette is at the upper limits of normal in size. No acute consolidations or pleural effusions are identified. Other findings as noted above Head CT 11/26/16 18:23 IMPRESSION: NORMAL BRAIN CT WITHOUT CONTRAST. EVIDENCE OF ACUTE STROKE: NO. Brain MRI with MRA 11/27/16 00:00 IMPRESSION: NORMAL MRA OF THE [place]. Head MRI 11/27/16 00:00 IMPRESSION: Diffuse confluent and focal areas of abnormal signal intensity in the periventricular white matter on the FLAIR sequence as noted above. Will this may only represent small vessel ischemic changes, the possibility of a demyelinating process such is in mass cannot be excluded. Clinical correlation is recommended. Focal area of abnormal signal intensity on the diffusion weighted sequence at the level of the medulla on the right consistent with an area of recent infarction. Other findings as noted above EVIDENCE OF ACUTE STROKE: NO. Neck MRA 11/27/16 00:00 IMPRESSION: NO SIGNIFICANT STENOSIS. Vascular Ultrasound 11/29/16 00:00 IMPRESSION: NO DOPPLER EVIDENCE OF HEMODYNAMICALLY SIGNIFICANT RENAL ARTERY STENOSIS. Modified Barium Swallow 12/02/16 00:00 IMPRESSION: LARYNGEAL PENETRATION AND TRACHEAL ASPIRATION WITH THIN, NECTAR, AND POST SWALLOW RESIDUAL CONSISTENCIES.PLEASE SEE SPEECH PATHOLOGIST REPORT FOR OTHER FINDINGS AND RECOMMENDATIONS. Assessment & Plan - Diagnosis (1) Hypertensive emergency Is this a current diagnosis for this admission?: Yes Plan: Patient presented with acute neurologic findings and an exceptionally elevated blood pressure. Pending urine metanephrines and serum metanephrines. Renal ultrasound for ELÍAS is negative We will stop her hydrochlorothiazide as patient is slightly dehydrated (2) PRES (posterior reversible encephalopathy syndrome) Is this a current diagnosis for this admission?: Yes Plan: At this time the neuroradiologist has reviewed her MRI and there is concern for PRES. We will place patient on seizure precautions. If patient does have a seizure, she will need to be loaded with 1 g of Dilantin. Initial read of the MRI was positive for a small stroke at the level of the medulla. Continue PT, aspirin, statin, and blood pressure control. She will need rehabilitation (3) Hyperlipidemia LDL goal <70 Is this a current diagnosis for this admission?: Yes Plan: Patient on simvastatin Will monitor for rhabdomyolysis in light of her concurrent use of Norvasc (4) Tobacco abuse Is this a current diagnosis for this admission?: Yes Plan: nicotine patch prn. Have encouraged cessation. (5) Elevated troponin Is this a current diagnosis for this admission?: Yes Plan: This is likely secondary to cardiac strain. Trending down and improving. (6) Dysphagia Qualifiers: Dysphagia type: unspecified Qualified Code(s): R13.10 - Dysphagia, unspecified Is this a current diagnosis for this admission?: Yes Plan: Have modified patient's diet based on MBS. Continue speech therapy (7) Acute renal failure Qualifiers: Acute renal failure type: unspecified Qualified Code(s): N17.9 - Acute kidney failure, unspecified Is this a current diagnosis for this admission?: Yes Plan: We will attempt to increase patient's other medications and decrease her lisinopril. Patient's elevation in her creatinine was after this. Negative for ELÍAS. - Time Time Spent with patient: 25-34 minutes Medications reviewed and adjusted accordingly: Yes Anticipated discharge: Acute Rehab Within: when bed available
[2016-12-04] MEDS: CLONIDINE HCL 0.2 MG TABLET PO SCH ×3 (05:32→21:44)
[2016-12-04] MEDS: HYDRALAZINE HCL 50 MG TABLET PO SCH ×3 (05:32→21:44)
[2016-12-04] MEDS: NICOTINE 14 MG/24 HR PATCH.TD24 TD SCH (10:13)
[2016-12-04] MEDS: DOCUSATE SODIUM 100 MG CAPSULE PO SCH ×2 (10:13→17:12)
[2016-12-04] MEDS: LISINOPRIL 10 MG TABLET PO SCH ×2 (10:13→21:43)
[2016-12-04] MEDS: ASPIRIN 325 MG TABLET, ENT COATED PO SCH (10:14)
[2016-12-04] MEDS: ENOXAPARIN SODIUM INJ 40 MG/0.4 ML DISP.SYRIN SUBCUT SCH (10:14)
--- NOTE | 2016-12-04 16:23 | PDOC PROGRESS REPORT ---
Subjective Progress Note for:: 12/04/16 Subjective:: Continues to remain ataxic, intermittently vertiginous, and with difficulty with her vision. Patient has not had a bowel movement in several days. Patient denies chest pain, shortness of breath, abdominal pain, nausea, vomiting , fevers, chills, diarrhea, headache. Physical Exam Vital Signs: Temp Pulse Resp BP Pulse Ox 97.7 F 64 16 133/82 H 99 12/04/16 11:28 12/04/16 11:28 12/04/16 11:28 12/04/16 11:28 12/04/16 11:28 Intake & Output 12/03/16 12/04/16 12/05/16 06:59 06:59 06:59 Intake Total 1405 558 Output Total 0 Balance 1405 558 Weight 71.7 kg 72.2 kg Exam: General: Awake alert and oriented x3, no acute respiratory distress HEENT: AT/NC, PERRL, oropharynx is mildly dry, pink, no scleral icterus, no conjunctival injection Neck: No JVD, trachea midline Chest: Clear to auscultation bilaterally, no wheezes rhonchi or rales CV: Regular rate and rhythm, normal S1 and S2, no murmur, rub, gallop Abdomen: Soft, nontender to palpation, nondistended, active bowel sounds; no rebound, rigidity, or guarding Extremities: No cyanosis, clubbing or edema Neuro: Improving nystagmus, +FTN; ataxia; awake alert and oriented x3 Psych: Normal mood and affect Skin: Xanthelasma on bilateral eyes Results Laboratory Results: 12/03/16 05:17 12/03/16 05:12 11/26/16 11/27/16 11/27/16 22:44 05:00 10:49 CK-MB (CK-2) 1.74 2.77 4.23 Troponin I 0.090 0.164 0.418 11/28/16 11/28/16 11/28/16 06:39 12:42 18:17 CK-MB (CK-2) Troponin I 0.329 0.186 0.209 11/29/16 00:28 CK-MB (CK-2) Troponin I 0.220 Impressions: Chest X-Ray 11/26/16 18:01 IMPRESSION: Cardiac silhouette is at the upper limits of normal in size. No acute consolidations or pleural effusions are identified. Other findings as noted above Head CT 11/26/16 18:23 IMPRESSION: NORMAL BRAIN CT WITHOUT CONTRAST. EVIDENCE OF ACUTE STROKE: NO. Brain MRI with MRA 11/27/16 00:00 IMPRESSION: NORMAL MRA OF THE [place]. Head MRI 11/27/16 00:00 IMPRESSION: Diffuse confluent and focal areas of abnormal signal intensity in the periventricular white matter on the FLAIR sequence as noted above. Will this may only represent small vessel ischemic changes, the possibility of a demyelinating process such is in mass cannot be excluded. Clinical correlation is recommended. Focal area of abnormal signal intensity on the diffusion weighted sequence at the level of the medulla on the right consistent with an area of recent infarction. Other findings as noted above EVIDENCE OF ACUTE STROKE: NO. Neck MRA 11/27/16 00:00 IMPRESSION: NO SIGNIFICANT STENOSIS. Vascular Ultrasound 11/29/16 00:00 IMPRESSION: NO DOPPLER EVIDENCE OF HEMODYNAMICALLY SIGNIFICANT RENAL ARTERY STENOSIS. Modified Barium Swallow 12/02/16 00:00 IMPRESSION: LARYNGEAL PENETRATION AND TRACHEAL ASPIRATION WITH THIN, NECTAR, AND POST SWALLOW RESIDUAL CONSISTENCIES.PLEASE SEE SPEECH PATHOLOGIST REPORT FOR OTHER FINDINGS AND RECOMMENDATIONS. Assessment & Plan - Diagnosis (1) Hypertensive emergency Is this a current diagnosis for this admission?: Yes Plan: Patient presented with acute neurologic findings and an exceptionally elevated blood pressure. Pending urine metanephrines and serum metanephrines. Renal ultrasound for ELÍAS is negative Selected Entries 12/04/16 12/04/16 07:27 11:28 Blood Pressure 139/75 H 133/82 H Generic Name Dose Route Start Last Admin Trade Name Caridad PRN Reason Stop Dose Admin Lisinopril 20 mg 11/27/16 10:00 12/04/16 10:13 Prinivil 10 Mg Tablet PO 12/27/16 09:59 20 mg Q12 [facility] Hydralazine HCl 50 mg 11/28/16 22:00 12/04/16 14:46 Apresoline 50 Mg Tablet PO 12/28/16 21:59 50 mg Q8 [facility] Clonidine 0.2 mg 11/29/16 14:00 12/04/16 14:46 Catapres 0.2 Mg Tablet PO 12/29/16 13:59 0.2 mg Q8 [facility] Amlodipine Besylate 5 mg 11/28/16 22:00 12/03/16 21:30 Norvasc 5 Mg Tablet PO 12/28/16 21:59 5 mg QHS [facility] (2) PRES (posterior reversible encephalopathy syndrome) Is this a current diagnosis for this admission?: Yes Plan: At this time the neuroradiologist has reviewed her MRI and there is concern for PRES. We will place patient on seizure precautions. If patient does have a seizure, she will need to be loaded with 1 g of Dilantin. Initial read of the MRI was positive for a small stroke at the level of the medulla. Continue PT, aspirin, statin, and blood pressure control. She will need rehabilitation Concerned that while this may have been present, patient is not substantially improving which is likely secondary to underlying infarct (3) Hyperlipidemia LDL goal <70 Is this a current diagnosis for this admission?: Yes Plan: Patient on simvastatin Will monitor for rhabdomyolysis in light of her concurrent use of Norvasc (4) Tobacco abuse Is this a current diagnosis for this admission?: Yes Plan: nicotine patch prn. Have encouraged cessation. (5) Elevated troponin Is this a current diagnosis for this admission?: Yes Plan: This is likely secondary to cardiac strain. Trending down and improving. (6) Dysphagia Qualifiers: Dysphagia type: unspecified Qualified Code(s): R13.10 - Dysphagia, unspecified Is this a current diagnosis for this admission?: Yes Plan: Have modified patient's diet based on MBS. Continue speech therapy (7) Acute renal failure Qualifiers: Acute renal failure type: unspecified Qualified Code(s): N17.9 - Acute kidney failure, unspecified Is this a current diagnosis for this admission?: Yes Plan: Secondary to dehydration. Encourage oral intake of fluids and recheck BMP in a.m. Have stopped hydrochlorothiazide. Additionally, think some of this is false elevation secondary to use of lisinopril. (8) Acute cerebrovascular accident (CVA) of cerebellum Is this a current diagnosis for this admission?: Yes Plan: Patient MRI of the head done on 11/27/16 reveals small infarct at the level of the right medulla. Patient has been seen by PT, OT, and speech. Currently pending discharge to rehabilitation. Generic Name Dose Route Start Last Admin Trade Name Freq PRN Reason Stop Dose Admin Clonidine 0.2 mg 11/29/16 14:00 12/04/16 14:46 Catapres 0.2 Mg Tablet PO 12/29/16 13:59 0.2 mg Q8 [facility] Hydralazine HCl 50 mg 11/28/16 22:00 12/04/16 14:46 Apresoline 50 Mg Tablet PO 12/28/16 21:59 50 mg Q8 [facility] Simvastatin 80 mg 11/27/16 22:00 12/03/16 21:31 Zocor 40 Mg Tablet PO 12/27/16 21:59 80 mg QHS [facility] Amlodipine Besylate 5 mg 11/28/16 22:00 12/03/16 21:30 Norvasc 5 Mg Tablet PO 12/28/16 21:59 5 mg QHS [facility] Aspirin 325 mg 12/03/16 10:00 12/04/16 10:14 Ecotrin 325 Mg Ec Tablet PO 12/27/16 09:59 325 mg DAILY [facility] Enoxaparin Sodium 40 mg 11/27/16 10:00 12/04/16 10:14 Lovenox Inj 40 Mg/0.4 Ml Disp.Syrin SUBCUT 12/27/16 09:59 40 mg DAILY [facility] Lisinopril 20 mg 11/27/16 10:00 12/04/16 10:13 Prinivil 10 Mg Tablet PO 12/27/16 09:59 20 mg Q12 [facility]
[2016-12-04] MEDS ORDERED: BISACODYL 10 MG SUPP.RECT PR PRN (17:06)
[2016-12-04] MEDS ORDERED: BISACODYL 10 MG SUPP.RECT PR ONE (17:10)
[2016-12-04] MEDS: SIMVASTATIN 40 MG TABLET PO SCH (21:43)
[2016-12-04] MEDS: AMLODIPINE BESYLATE 5 MG TABLET PO SCH (21:44)
[2016-12-04] MEDS: SENNOSIDES/DOCUSATE 8.6-50 MG 1 EACH TABLET PO SCH (21:44)
[2016-12-04] MEDS: ONDANSETRON HCL INJ/PF 4 MG/2 ML SDV IV PRN (21:52)
[2016-12-05 05:43] LABS: ANION GAP 15 (5-19); BLOOD UREA NITROGEN 44 mg/dL (7-20); CALCIUM 9.8 mg/dL (8.4-10.2); CARBON DIOXIDE 23 mmol/L (22-30); CHLORIDE 106 mmol/L (98-107); CREATININE RESULT 1.49 mg/dL (0.52-1.25); GLUCOSE 95 mg/dL (75-110); POTASSIUM 4.2 mmol/L (3.6-5.0); SODIUM 143.7 mmol/L (137-145)
[2016-12-05] MEDS: HYDRALAZINE HCL 50 MG TABLET PO SCH ×3 (05:48→21:53)
[2016-12-05] MEDS: CLONIDINE HCL 0.2 MG TABLET PO SCH ×3 (05:48→21:53)
[2016-12-05] MEDS: ENOXAPARIN SODIUM INJ 40 MG/0.4 ML DISP.SYRIN SUBCUT SCH (09:11)
[2016-12-05] MEDS: DOCUSATE SODIUM 100 MG CAPSULE PO SCH ×2 (09:12→18:15)
[2016-12-05] MEDS: LISINOPRIL 10 MG TABLET PO SCH ×2 (09:12→21:53)
[2016-12-05] MEDS: NICOTINE 14 MG/24 HR PATCH.TD24 TD SCH (09:12)
[2016-12-05] MEDS: ASPIRIN 325 MG TABLET, ENT COATED PO SCH (09:12)
--- NOTE | 2016-12-05 17:18 | PDOC PROGRESS REPORT ---
Subjective Progress Note for:: 12/05/16 Subjective:: Patient's nurse reports that she has been having difficulty with swallowing. Continues to remain ataxic, increasingly vertiginous, and with difficulty with her vision. Patient has not had a bowel movement in several days. Patient denies chest pain, shortness of breath, abdominal pain, nausea, vomiting , fevers, chills, diarrhea, headache. Physical Exam Vital Signs: Temp Pulse Resp BP Pulse Ox 97.8 F 62 18 160/77 H 99 12/05/16 16:05 12/05/16 16:05 12/05/16 16:05 12/05/16 16:05 12/05/16 16:05 Intake & Output 12/04/16 12/05/16 12/06/16 06:59 06:59 06:59 Intake Total 558 866 Output Total 0 0 Balance 558 866 Weight 72.2 kg 70.1 kg Exam: General: Awake alert and oriented x3, no acute respiratory distress HEENT: AT/NC, PERRL, oropharynx is dry, white plaques on tongue, no scleral icterus, no conjunctival injection Neck: No JVD, trachea midline Chest: Rhonchi right lower lobe CV: Regular rate and rhythm, normal S1 and S2, no murmur, rub, gallop Abdomen: Soft, nontender to palpation, nondistended, active bowel sounds; no rebound, rigidity, or guarding Extremities: No cyanosis, clubbing or edema Neuro: Right eye laterally deviated, +FTN; ataxia; awake alert and oriented x3 Psych: Normal mood and affect Skin: Xanthelasma on bilateral eyes Results Laboratory Results: 12/03/16 05:17 12/05/16 04:55 12/05/16 04:55 Sodium 143.7 Potassium 4.2 Chloride 106 Carbon Dioxide 23 Anion Gap 15 BUN 44 H Creatinine 1.49 H Est GFR ( Amer) 45 L Est GFR (Non-Af Amer) 38 L Glucose 95 Calcium 9.8 11/26/16 11/27/16 11/27/16 22:44 05:00 10:49 CK-MB (CK-2) 1.74 2.77 4.23 Troponin I 0.090 0.164 0.418 11/28/16 11/28/16 11/28/16 06:39 12:42 18:17 CK-MB (CK-2) Troponin I 0.329 0.186 0.209 11/29/16 00:28 CK-MB (CK-2) Troponin I 0.220 Impressions: Chest X-Ray 11/26/16 18:01 IMPRESSION: Cardiac silhouette is at the upper limits of normal in size. No acute consolidations or pleural effusions are identified. Other findings as noted above Head CT 11/26/16 18:23 IMPRESSION: NORMAL BRAIN CT WITHOUT CONTRAST. EVIDENCE OF ACUTE STROKE: NO. Brain MRI with MRA 11/27/16 00:00 IMPRESSION: NORMAL MRA OF THE [place]. Head MRI 11/27/16 00:00 IMPRESSION: Diffuse confluent and focal areas of abnormal signal intensity in the periventricular white matter on the FLAIR sequence as noted above. Will this may only represent small vessel ischemic changes, the possibility of a demyelinating process such is in mass cannot be excluded. Clinical correlation is recommended. Focal area of abnormal signal intensity on the diffusion weighted sequence at the level of the medulla on the right consistent with an area of recent infarction. Other findings as noted above EVIDENCE OF ACUTE STROKE: NO. Neck MRA 11/27/16 00:00 IMPRESSION: NO SIGNIFICANT STENOSIS. Vascular Ultrasound 11/29/16 00:00 IMPRESSION: NO DOPPLER EVIDENCE OF HEMODYNAMICALLY SIGNIFICANT RENAL ARTERY STENOSIS. Modified Barium Swallow 12/02/16 00:00 IMPRESSION: LARYNGEAL PENETRATION AND TRACHEAL ASPIRATION WITH THIN, NECTAR, AND POST SWALLOW RESIDUAL CONSISTENCIES.PLEASE SEE SPEECH PATHOLOGIST REPORT FOR OTHER FINDINGS AND RECOMMENDATIONS. Assessment & Plan - Diagnosis (1) Acute cerebrovascular accident (CVA) of cerebellum Is this a current diagnosis for this admission?: Yes Plan: Patient MRI of the head done on 11/27/16 reveals small infarct at the level of the right medulla. Patient has been seen by PT, OT, and speech. Although patient's worsening symptomatology is likely due to dehydration, I am concerned because of the location of her previous CVA and will repeat her CT of the head to evaluate for edema and normal pressure hydrocephalus. Patient denies headache. Was seen by ophthalmology and they did not see any papilledema. (2) Hypertensive emergency Is this a current diagnosis for this admission?: Yes Plan: Renal ultrasound is negative for ELÍAS, serum and urine metanephrines and normetanephrine's are negative 11/27/16 10:00 Lisinopril [Prinivil 10 mg Tablet] 20 mg PO Q12 11/28/16 22:00 Amlodipine Besylate [Norvasc 5 mg Tablet] 5 mg PO QHS Hydralazine HCl [Apresoline 50 mg Tablet] 50 mg PO Q8 11/29/16 14:00 Clonidine HCl [Catapres 0.2 mg Tablet] 0.2 mg PO Q8 (3) PRES (posterior reversible encephalopathy syndrome) Is this a current diagnosis for this admission?: Yes Plan: At this time the neuroradiologist has reviewed her MRI and there is concern for PRES. We will place patient on seizure precautions. If patient does have a seizure, she will need to be loaded with 1 g of Dilantin. Initial read of the MRI was positive for a small stroke at the level of the medulla. Continue PT, aspirin, statin, and blood pressure control. She will need rehabilitation Concerned that while this may have been present, patient is not substantially improving which is likely secondary to underlying infarct (4) Hyperlipidemia LDL goal <70 Is this a current diagnosis for this admission?: Yes Plan: Patient on simvastatin Will monitor for rhabdomyolysis in light of her concurrent use of Norvasc (5) Tobacco abuse Is this a current diagnosis for this admission?: Yes Plan: nicotine patch prn. Have encouraged cessation. (6) Elevated troponin Is this a current diagnosis for this admission?: Yes (7) Dysphagia Qualifiers: Dysphagia type: unspecified Qualified Code(s): R13.10 - Dysphagia, unspecified Is this a current diagnosis for this admission?: Yes Plan: Have modified patient's diet based on MBS. Continue speech therapy (8) Acute renal failure Qualifiers: Acute renal failure type: unspecified Qualified Code(s): N17.9 - Acute kidney failure, unspecified Is this a current diagnosis for this admission?: Yes Plan: Secondary to dehydration. Reinitiate IV fluids (9) UTI (urinary tract infection) Qualifiers: Urinary tract infection type: acute cystitis Hematuria presence: without hematuria Qualified Code(s): N30.00 - Acute cystitis without hematuria Is this a current diagnosis for this admission?: Yes Plan: Upon entering patient's room I was able to smell very strongly her urine and we will check UA and culture - Time Time Spent with patient: 35 or more minutes Medications reviewed and adjusted accordingly: Yes Anticipated discharge: Acute Rehab
[2016-12-05] MEDS: NORMAL SALINE 1000 ML 1,000 ML IV PRN (18:15)
[2016-12-05] MEDS: NYSTATIN 500000 UNIT/5 ML UDCUP PO SCH ×2 (18:15→21:52)
[2016-12-05] MEDS: LEVOFLOXACIN 750 MG/D5W RTU 750 MG/150 ML RTUPB IV SCH (18:16)
[2016-12-05 18:49] LABS: APPEARANCE,URINE CLOUDY; BILIRUBIN,URINE NEGATIVE (NEGATIVE); GLUCOSE, URINE NEGATIVE (NEGATIVE); KETONES,URINE NEGATIVE (NEGATIVE); LEUKOCYTE ESTERASE,URINE NEGATIVE (NEGATIVE); NITRITE,URINE NEGATIVE (NEGATIVE); PROTEIN,URINE 30 mg/dL (NEGATIVE); URINE SPECIFIC GRAVITY 1.023; UROBILINOGEN,URINE NEGATIVE mg/dL (<2.0)
--- NOTE | 2016-12-05 19:11 | RADIOLOGY REPORT (SQ) ---
EXAM DESCRIPTION: CT HEAD WITHOUT COMPLETED DATE/TIME: 12/05/2016 5:54 pm REASON FOR STUDY: worsening vertigo COMPARISON: Head CT 11/26/2016 and MRI 11/27/2016 TECHNIQUE: Axial images acquired through the brain without intravenous contrast. Images reviewed wi th bone, brain and subdural windows. Images stored on PACS. All CT scanners at this facility use dose modulation, iterative reconstruction, and/or weight based d osing when appropriate to reduce radiation dose to as low as reasonably achievable (ALARA). [facility]: Dose Right [facility]: CareDose [facility]: Dose Right [facility]: Teradose 4D [facility]: [employer] RADIATION DOSE: Up-to-date CT equipment and radiation dose reduction techniques were employed. CTDIv ol: 64.6 mGy. DLP: 1034 mGy-cm. mGy. LIMITATIONS: None. FINDINGS: VENTRICLES: Normal size and contour. CEREBRUM: No masses. No hemorrhage. No midline shift. No evidence for acute infarction. Normal gra y/white matter differentiation. No areas of low density in the white matter. CEREBELLUM: No masses. No hemorrhage. No alteration of density. No evidence for acute infarction. EXTRAAXIAL SPACES: No fluid collections. No masses. ORBITS AND GLOBE: No intra- or extraconal masses. Normal contour of globe without masses. CALVARIUM: No fracture. PARANASAL SINUSES: No fluid or mucosal thickening. SOFT TISSUES: No mass or hematoma. OTHER: Known restricted diffusion involving the right medulla occurs in an area significant beam hard ening artifact, and is not adequately characterized by noncontrast head CT. Likewise, periventricula r white matter findings on comparison MR are not discretely evident on CT. IMPRESSION: Unremarkable noncontrast head CT. EVIDENCE OF ACUTE STROKE: NO. COMMENT: Quality ID # [id number]: Final reports with documentation of one or more dose reduction techniques (e.g., Automated exposure control, adjustment of the mA and/or kV according to patient size, use of iterative reconstruction technique) TECHNICAL DOCUMENTATION: JOB ID: [id number] [email or web address]- All Rights Reserved
[2016-12-05] MEDS: AMLODIPINE BESYLATE 5 MG TABLET PO SCH (21:48)
[2016-12-05] MEDS: SIMVASTATIN 40 MG TABLET PO SCH (21:53)
[2016-12-05] MEDS: SENNOSIDES/DOCUSATE 8.6-50 MG 1 EACH TABLET PO SCH (21:53)
--- NOTE | 2016-12-05 22:38 | RADIOLOGY REPORT (SQ) ---
EXAM DESCRIPTION: CHEST SINGLE VIEW COMPLETED DATE/TIME: 12/05/2016 5:44 pm REASON FOR STUDY: rll rhonchi, concern for aspiration pna COMPARISON: 11/26/2016 EXAM PARAMETERS: NUMBER OF VIEWS: One view. TECHNIQUE: Single frontal radiographic view of the chest acquired. RADIATION DOSE: NA LIMITATIONS: None. FINDINGS: LUNGS AND PLEURA: Low lung volumes results in bronchovascular crowding. No focal opacitie s, masses or pneumothorax. No pleural effusion. MEDIASTINUM AND HILAR STRUCTURES: No masses. Contour normal. HEART AND VASCULAR STRUCTURES: Heart normal in size. Normal vasculature. BONES: No acute findings. HARDWARE: None in the chest. OTHER: No other significant finding. IMPRESSION: NO ACUTE RADIOGRAPHIC FINDING IN THE CHEST. TECHNICAL DOCUMENTATION: JOB ID: [id number]
[2016-12-06] MEDS: HYDRALAZINE HCL 50 MG TABLET PO SCH ×2 (06:18→13:47)
[2016-12-06] MEDS: CLONIDINE HCL 0.2 MG TABLET PO SCH ×3 (06:18→21:48)
[2016-12-06 08:42] LABS: ABSOLUTE BASOPHILS # (AUTO) 0.1 10^3/uL (0.0-0.2); ABSOLUTE EOSINOPHILS # (AUTO) 0.1 10^3/uL (0.0-0.6); ABSOLUTE MONOCYTES (AUTO) 0.7 10^3/uL (0.1-1.4); BASOPHILS % (AUTO) 0.6 % (0-2); EOSINOPHILS % (AUTO) 0.7 % (0-6); HEMATOCRIT 37.3 % (36.0-47.0); HEMOGLOBIN 12.1 g/dL (12.0-15.5); LYMPHOCYTES % (AUTO) 9.5 % (13-45); MEAN CORPUSCULAR HEMOGLOBIN 25.8 pg (27.0-33.4); MEAN CORPUSCULAR HGB CONC 32.4 g/dL (32.0-36.0); MEAN CORPUSCULAR VOLUME 80 fl (80-97); MONOCYTES % (AUTO) 6.3 % (3-13); RED BLOOD COUNT 4.68 10^6/uL (3.72-5.28); SEGMENTED NEUTROPHILS % (AUTO) 82.9 % (42-78); WHITE BLOOD COUNT 10.9 10^3/uL (4.0-10.5)
[2016-12-06 08:56] LABS: ANION GAP 14 (5-19); BLOOD UREA NITROGEN 36 mg/dL (7-20); CALCIUM 9.5 mg/dL (8.4-10.2); CARBON DIOXIDE 22 mmol/L (22-30); CHLORIDE 109 mmol/L (98-107); CREATININE RESULT 1.31 mg/dL (0.52-1.25); GLUCOSE 83 mg/dL (75-110); POTASSIUM 4.2 mmol/L (3.6-5.0); SODIUM 145.4 mmol/L (137-145)
[2016-12-06] MEDS: DOCUSATE SODIUM 100 MG CAPSULE PO SCH ×2 (09:42→17:48)
[2016-12-06] MEDS: NICOTINE 14 MG/24 HR PATCH.TD24 TD SCH (09:42)
[2016-12-06] MEDS: NYSTATIN 500000 UNIT/5 ML UDCUP PO SCH ×4 (09:42→21:47)
[2016-12-06] MEDS: ENOXAPARIN SODIUM INJ 40 MG/0.4 ML DISP.SYRIN SUBCUT SCH (09:42)
[2016-12-06] MEDS: ASPIRIN 325 MG TABLET, ENT COATED PO SCH (09:42)
[2016-12-06] MEDS: LISINOPRIL 10 MG TABLET PO SCH ×2 (09:42→21:48)
--- NOTE | 2016-12-06 17:47 | PDOC PROGRESS REPORT ---
Subjective Progress Note for:: 12/06/16 Subjective:: Patient reports she is feeling better, but wants to get out of bed. Patient has only had one bowel movement since admission Patient denies chest pain, shortness of breath, abdominal pain, nausea, vomiting , fevers, chills, diarrhea, headache. Physical Exam Vital Signs: Temp Pulse Resp BP Pulse Ox 97.7 F 90 16 166/79 H 98 12/06/16 00:28 12/06/16 07:00 12/06/16 00:28 12/06/16 00:28 12/06/16 00:28 Intake & Output 12/05/16 12/06/16 12/07/16 06:59 06:59 06:59 Intake Total 866 1005 Output Total 0 Balance 866 1005 Weight 70.1 kg 70.1 kg Exam: General: Awake alert and oriented x3, no acute respiratory distress HEENT: AT/NC, PERRL, oropharynx is moist, no scleral icterus, no conjunctival injection Neck: No JVD, trachea midline Chest: CTAB CV: Regular rate and rhythm, normal S1 and S2, no murmur, rub, gallop Abdomen: Soft, nontender to palpation, nondistended, active bowel sounds; no rebound, rigidity, or guarding Extremities: No cyanosis, clubbing or edema Neuro: Right eye laterally deviated, +FTN; ataxia; awake alert and oriented x3 Psych: Normal mood and affect Skin: Xanthelasma on bilateral eyes Results Laboratory Results: 12/03/16 05:17 12/05/16 04:55 12/05/16 18:12 Urine Color YELLOW Urine Appearance CLOUDY Urine pH 5.0 Ur Specific [place] 1.023 Urine Protein 30 H Urine Glucose (UA) NEGATIVE Urine Ketones NEGATIVE Urine Blood NEGATIVE Urine Nitrite NEGATIVE Ur Leukocyte Esterase NEGATIVE Urine WBC (Auto) 15 Urine RBC (Auto) 3 11/26/16 11/27/16 11/27/16 22:44 05:00 10:49 CK-MB (CK-2) 1.74 2.77 4.23 Troponin I 0.090 0.164 0.418 11/28/16 11/28/16 11/28/16 06:39 12:42 18:17 CK-MB (CK-2) Troponin I 0.329 0.186 0.209 11/29/16 00:28 CK-MB (CK-2) Troponin I 0.220 Impressions: Brain MRI with MRA 11/27/16 00:00 IMPRESSION: NORMAL MRA OF THE [place]. Head MRI 11/27/16 00:00 IMPRESSION: Diffuse confluent and focal areas of abnormal signal intensity in the periventricular white matter on the FLAIR sequence as noted above. Will this may only represent small vessel ischemic changes, the possibility of a demyelinating process such is in mass cannot be excluded. Clinical correlation is recommended. Focal area of abnormal signal intensity on the diffusion weighted sequence at the level of the medulla on the right consistent with an area of recent infarction. Other findings as noted above EVIDENCE OF ACUTE STROKE: NO. Neck MRA 11/27/16 00:00 IMPRESSION: NO SIGNIFICANT STENOSIS. Vascular Ultrasound 11/29/16 00:00 IMPRESSION: NO DOPPLER EVIDENCE OF HEMODYNAMICALLY SIGNIFICANT RENAL ARTERY STENOSIS. Modified Barium Swallow 12/02/16 00:00 IMPRESSION: LARYNGEAL PENETRATION AND TRACHEAL ASPIRATION WITH THIN, NECTAR, AND POST SWALLOW RESIDUAL CONSISTENCIES.PLEASE SEE SPEECH PATHOLOGIST REPORT FOR OTHER FINDINGS AND RECOMMENDATIONS. Chest X-Ray 12/05/16 00:00 IMPRESSION: NO ACUTE RADIOGRAPHIC FINDING IN THE CHEST. Head CT 12/05/16 00:00 IMPRESSION: Unremarkable noncontrast head CT. EVIDENCE OF ACUTE STROKE: NO. Assessment & Plan - Diagnosis (1) Acute cerebrovascular accident (CVA) of cerebellum Is this a current diagnosis for this admission?: Yes Plan: Patient MRI of the head done on 11/27/16 reveals small infarct at the level of the right medulla. Patient has been seen by PT, OT, and speech. repeat Ct head negative for hydrocephalus or herniation (2) Hypertensive emergency Is this a current diagnosis for this admission?: Yes Plan: Renal ultrasound is negative for ELÍAS, serum and urine metanephrines and normetanephrine's are negative Increase hydralazine (3) PRES (posterior reversible encephalopathy syndrome) Is this a current diagnosis for this admission?: Yes (4) Hyperlipidemia LDL goal <70 Is this a current diagnosis for this admission?: Yes (5) Tobacco abuse Is this a current diagnosis for this admission?: Yes (6) Elevated troponin Is this a current diagnosis for this admission?: Yes (7) Dysphagia Qualifiers: Dysphagia type: unspecified Qualified Code(s): R13.10 - Dysphagia, unspecified Is this a current diagnosis for this admission?: Yes (8) Acute renal failure Qualifiers: Acute renal failure type: unspecified Qualified Code(s): N17.9 - Acute kidney failure, unspecified Is this a current diagnosis for this admission?: Yes Plan: Secondary to dehydration. Reinitiate IV fluids (9) UTI (urinary tract infection) Qualifiers: Urinary tract infection type: acute cystitis Hematuria presence: without hematuria Qualified Code(s): N30.00 - Acute cystitis without hematuria Is this a current diagnosis for this admission?: Yes Plan: Continue levaquin pending culture - Time Time Spent with patient: 25-34 minutes - Inpatient Certification Based on my medical assessment, after consideration of the patient's comorbidities, presenting symptoms, or acuity I expect that the services needed warrant INPATIENT care.: Yes I certify that my determination is in accordance with my understanding of Medicare's requirements for reasonable and necessary INPATIENT services [42 CFR 412.3e].: Yes Medical Necessity: Need For IV Fluids Post Hospital Care: D/C [employer] Service Attendant Documentation
[2016-12-06] MEDS: ONDANSETRON HCL INJ/PF 4 MG/2 ML SDV IV PRN (17:48)
[2016-12-06] MEDS: LEVOFLOXACIN 750 MG/D5W RTU 750 MG/150 ML RTUPB IV SCH (17:48)
[2016-12-06] MEDS ORDERED: HYDRALAZINE HCL 50 MG TABLET PO ONE (18:00)
[2016-12-06] MEDS: AMLODIPINE BESYLATE 5 MG TABLET PO SCH (21:47)
[2016-12-06] MEDS: SENNOSIDES/DOCUSATE 8.6-50 MG 1 EACH TABLET PO SCH (21:47)
[2016-12-06] MEDS: SIMVASTATIN 40 MG TABLET PO SCH (21:49)
[2016-12-06] MEDS ORDERED: HYDRALAZINE HCL 50 MG TABLET PO SCH (22:00)
[2016-12-07] MEDS: NORMAL SALINE 1000 ML 1,000 ML IV PRN (03:33)
[2016-12-07] MEDS: CLONIDINE HCL 0.2 MG TABLET PO SCH ×3 (06:22→21:20)
[2016-12-07] MEDS ORDERED: MAGNESIUM CITRATE 296 ML BOTTLE PO ONE ×2 (08:30→12:15)
[2016-12-07 09:03] LABS: ANION GAP 10 (5-19); BLOOD UREA NITROGEN 29 mg/dL (7-20); CALCIUM 8.9 mg/dL (8.4-10.2); CARBON DIOXIDE 23 mmol/L (22-30); CHLORIDE 112 mmol/L (98-107); CREATININE RESULT 1.33 mg/dL (0.52-1.25); GLUCOSE 86 mg/dL (75-110); POTASSIUM 4.1 mmol/L (3.6-5.0); SODIUM 144.5 mmol/L (137-145)
[2016-12-07] MEDS: NYSTATIN 500000 UNIT/5 ML UDCUP PO SCH ×4 (11:46→21:18)
[2016-12-07] MEDS: ASPIRIN 325 MG TABLET, ENT COATED PO SCH (11:46)
[2016-12-07] MEDS: NICOTINE 14 MG/24 HR PATCH.TD24 TD SCH (11:47)
[2016-12-07] MEDS: LISINOPRIL 10 MG TABLET PO SCH ×2 (11:47→21:19)
[2016-12-07] MEDS: DOCUSATE SODIUM 100 MG CAPSULE PO SCH ×2 (11:47→17:52)
[2016-12-07] MEDS: ENOXAPARIN SODIUM INJ 40 MG/0.4 ML DISP.SYRIN SUBCUT SCH (11:48)
--- NOTE | 2016-12-07 18:12 | PDOC PROGRESS REPORT ---
Subjective Progress Note for:: 12/07/16 Subjective:: Patient is sitting in the chair when I see her. She reports she feels improved. Patient denies chest pain, shortness of breath, abdominal pain, nausea, vomiting , fevers, chills, diarrhea, constipation, headache, new onset weakness. Physical Exam Vital Signs: Temp Pulse Resp BP Pulse Ox 97.5 F 60 16 137/77 H 99 12/06/16 19:59 12/07/16 02:00 12/06/16 19:59 12/06/16 19:59 12/06/16 19:59 Intake & Output 12/06/16 12/07/16 12/08/16 06:59 06:59 06:59 Intake Total 1005 3635 Balance 1005 3635 Weight 70.1 kg 70.1 kg Exam: General: Awake alert and oriented x3, no acute respiratory distress HEENT: AT/NC, PERRL, oropharynx is moist, no scleral icterus, no conjunctival injection Neck: No JVD, trachea midline Chest: CTAB CV: Regular rate and rhythm, normal S1 and S2, no murmur, rub, gallop Abdomen: Soft, nontender to palpation, nondistended, active bowel sounds; no rebound, rigidity, or guarding Extremities: No cyanosis, clubbing or edema Neuro: Right eye laterally deviated, +FTN; ataxia; awake alert and oriented x3 Psych: Normal mood and affect Skin: Xanthelasma on bilateral eyes Results Laboratory Results: 12/06/16 08:05 12/06/16 08:05 12/06/16 12/06/16 08:05 08:05 WBC 10.9 H RBC 4.68 Hgb 12.1 Hct 37.3 MCV 80 MCH 25.8 L MCHC 32.4 RDW 17.0 H Plt Count 296 Seg Neutrophils % 82.9 H Lymphocytes % 9.5 L Monocytes % 6.3 Eosinophils % 0.7 Basophils % 0.6 Absolute Neutrophils 9.0 H Absolute Lymphocytes 1.0 Absolute Monocytes 0.7 Absolute Eosinophils 0.1 Absolute Basophils 0.1 Sodium 145.4 H Potassium 4.2 Chloride 109 H Carbon Dioxide 22 Anion Gap 14 BUN 36 H Creatinine 1.31 H Est GFR ( Amer) 53 L Est GFR (Non-Af Amer) 44 L Glucose 83 Calcium 9.5 11/26/16 11/27/16 11/27/16 22:44 05:00 10:49 CK-MB (CK-2) 1.74 2.77 4.23 Troponin I 0.090 0.164 0.418 11/28/16 11/28/16 11/28/16 06:39 12:42 18:17 CK-MB (CK-2) Troponin I 0.329 0.186 0.209 11/29/16 00:28 CK-MB (CK-2) Troponin I 0.220 Impressions: Brain MRI with MRA 11/27/16 00:00 IMPRESSION: NORMAL MRA OF THE [place]. Head MRI 11/27/16 00:00 IMPRESSION: Diffuse confluent and focal areas of abnormal signal intensity in the periventricular white matter on the FLAIR sequence as noted above. Will this may only represent small vessel ischemic changes, the possibility of a demyelinating process such is in mass cannot be excluded. Clinical correlation is recommended. Focal area of abnormal signal intensity on the diffusion weighted sequence at the level of the medulla on the right consistent with an area of recent infarction. Other findings as noted above EVIDENCE OF ACUTE STROKE: NO. Neck MRA 11/27/16 00:00 IMPRESSION: NO SIGNIFICANT STENOSIS. Vascular Ultrasound 11/29/16 00:00 IMPRESSION: NO DOPPLER EVIDENCE OF HEMODYNAMICALLY SIGNIFICANT RENAL ARTERY STENOSIS. Modified Barium Swallow 12/02/16 00:00 IMPRESSION: LARYNGEAL PENETRATION AND TRACHEAL ASPIRATION WITH THIN, NECTAR, AND POST SWALLOW RESIDUAL CONSISTENCIES.PLEASE SEE SPEECH PATHOLOGIST REPORT FOR OTHER FINDINGS AND RECOMMENDATIONS. Chest X-Ray 12/05/16 00:00 IMPRESSION: NO ACUTE RADIOGRAPHIC FINDING IN THE CHEST. Head CT 12/05/16 00:00 IMPRESSION: Unremarkable noncontrast head CT. EVIDENCE OF ACUTE STROKE: NO. Assessment & Plan - Diagnosis (1) Acute cerebrovascular accident (CVA) of cerebellum Is this a current diagnosis for this admission?: Yes Plan: Patient MRI of the head done on 11/27/16 reveals small infarct at the level of the right medulla. Patient has been seen by PT, OT, and speech. repeat Ct head negative for hydrocephalus or herniation Patient is currently pending rehabilitation placement, but due to her insurance status, and left but not less than optimistic that this will be possible. I have encouraged patient to discuss an alternative plan with her family. (2) Hypertensive emergency Is this a current diagnosis for this admission?: Yes Plan: Renal ultrasound is negative for ELÍAS, serum and urine metanephrines and normetanephrine's are negative Improved Generic Name Dose Route Start Last Admin Trade Name Caridad PRN Reason Stop Dose Admin Amlodipine Besylate 5 mg 11/28/16 22:00 12/06/16 21:47 Norvasc 5 Mg Tablet PO 12/28/16 21:59 5 mg QHS JEROMY Clonidine 0.2 mg 11/29/16 14:00 12/07/16 14:35 Catapres 0.2 Mg Tablet PO 12/29/16 13:59 0.2 mg Q8 JEROMY Hydralazine HCl 50 mg 11/28/16 22:00 12/06/16 13:47 Apresoline 50 Mg Tablet PO 12/28/16 21:59 50 mg Q8 JEROMY Lisinopril 20 mg 11/27/16 10:00 12/07/16 11:47 Prinivil 10 Mg Tablet PO 12/27/16 09:59 20 mg Q12 JEROMY (3) PRES (posterior reversible encephalopathy syndrome) Is this a current diagnosis for this admission?: Yes (4) Hyperlipidemia LDL goal <70 Is this a current diagnosis for this admission?: Yes Plan: Patient on simvastatin Will monitor for rhabdomyolysis in light of her concurrent use of Norvasc (5) Tobacco abuse Is this a current diagnosis for this admission?: Yes Plan: nicotine patch prn. Have encouraged cessation. (6) Elevated troponin Is this a current diagnosis for this admission?: Yes Plan: This is likely secondary to cardiac strain. Trending down and improving. (7) Dysphagia Qualifiers: Dysphagia type: unspecified Qualified Code(s): R13.10 - Dysphagia, unspecified Is this a current diagnosis for this admission?: Yes Plan: Have modified patient's diet based on MBS. Continue speech therapy (8) Acute renal failure Qualifiers: Acute renal failure type: unspecified Qualified Code(s): N17.9 - Acute kidney failure, unspecified Is this a current diagnosis for this admission?: Yes Plan: Secondary to dehydration. Improved after IV fluids. Stop IV fluids and encourage oral intake (9) UTI (urinary tract infection) Qualifiers: Urinary tract infection type: acute cystitis Hematuria presence: without hematuria Qualified Code(s): N30.00 - Acute cystitis without hematuria Is this a current diagnosis for this admission?: Yes Plan: Culture currently negative. Stop Levaquin
--- NOTE | 2016-12-07 21:01 | PDOC CONSULTATION ---
Consultation Consult Date: 12/07/16 Attending physician:: SELVIN MIRANDA Consult reason:: I was asked by Dr. Miranda to see this patient because of acute kidney injury and hypertension. History of Present Illness Admission Date/PCP: 11/26/16 20:33 History of Present Illness: Patient is a 46-year-old lady admitted on 11/26/2016 presenting with acute onset of headache, nausea, vomiting, dizziness and blurred vision. Her presenting blood pressure was 280/160. Patient was diagnosed with hypertension however she has not been taking her medications for about a year since she does not have any insurance and has not been seeing any provider. Patient was subsequently admitted in the intensive care unit and was initially placed on nicardipine drip. He had worked up including CT scan of the head, MRI of the head, MRA of the neck, and echocardiogram. She was found to have abnormal findings in the head MRI possibly causing acute CVA at the level of the medulla consistent with a recent infarction. Patient's right eye continues to be blurry until now. She was evaluated by ophthalmology while here. In terms of the blood pressure patient had several tests done to rule out secondary causes. She had a negative renal artery stenosis and duplex of renal arteries. Her plasma metanephrines and urine metanephrines were normal. Her thyroid functions was also good. The hospitalist did a very good job in adjusting her medications after nicardipine drip was off. Her current medication regimen for the blood pressure seems to be working with relatively acceptable blood pressures. Patient also had an acute kidney injury while here in the hospital. At admission she had a BUN of 19 creatinine 1.02 with estimated GFR 58. Her kidney function started getting worse with adjustments of medication and on December 01 she had a BUN of 63 and creatinine of 1.92 with estimated GFR of 28. Today she has a BUN of 29 creatinine of 1.33 and estimated GFR 43. Her kidney functions actually been stable for the last few days recently. Patient denies any problems with her kidneys that she is aware of. She denied any history of kidney stones nor any problem with urination. She denies having leg swelling. Currently she is making good amount of urine currently nonoliguric. Past Medical History Cardiac Medical History: Reports: Hypertension-primary Past Surgical History Past Surgical History: Reports: None Social History Information Source: Patient Occupation: She works at the [employer] prior to admission Lives with: Alone Smoking Status: Current Every Day Smoker - Half a pack per day prior to admission for 50 years Frequency of Alcohol Use: None Hx Recreational Drug Use: No - Advance Directive Resuscitation Status: Full Code Family History Family History: CVA - Mother, Hypertension - And her father, Malignancy - Lung cancer in both grandfathers, Thyroid Disfunction - Mother Parental Family History Reviewed: Yes Children Family History Reviewed: Yes Sibling(s) Family History Reviewed.: Yes Medication/Allergy Home Medications: No Home Medications 11/26/16 Allergies/Adverse Reactions: No Known Allergies Allergy (Verified 11/26/16 17:16) Review of Systems All systems: reviewed and no additional remarkable complaints except as stated Review of Systems: Constitutional: ABSENT: chills, fatigue, fever(s), weight gain, weight loss; admits headache on admission, currently improved Eyes: Right eye blurring of vision Ears: ABSENT: hearing changes Cardiovascular: ABSENT: chest pain, dyspnea on exertion, edema, orthropnea, palpitations Respiratory: ABSENT: cough, dyspnea, hemoptysis Gastrointestinal: ABSENT: abdominal pain, constipation, diarrhea, hematemesis, hematochezia, nausea, vomiting Genitourinary: ABSENT: dysuria, hematuria Musculoskeletal: ABSENT: joint swelling Integumentary: ABSENT: rash, wounds Neurological: ABSENT: abnormal gait, abnormal speech, confusion, focal weakness , numbness, syncope; admits dizziness and admission currently improved Psychiatric: ABSENT: anxiety, depression Endocrine: ABSENT: cold intolerance, heat intolerance, polydipsia, polyuria Hematologic/Lymphatic: ABSENT: easy bleeding, easy bruising, lymphadenopathy Physical Exam Vital Signs: Temp Pulse Resp BP Pulse Ox 97.4 F 60 16 134/80 H 100 12/07/16 15:27 12/07/16 15:27 12/07/16 15:27 12/07/16 15:27 12/07/16 15:27 Intake & Output 12/06/16 12/07/16 12/08/16 06:59 06:59 06:59 Intake Total 1005 3635 2820 Balance 1005 3635 2820 Weight 70.1 kg 70.1 kg Exam: General appearance: no acute distress, cooperative, well-developed, well- nourished Head exam: PRESENT: atraumatic, normocephalic Eye exam: PRESENT: Conjunctiva [place], EOMI, PERRLA. Gross blurring of vision in the right eye ABSENT: conjunctival injection, scleral icterus Mouth exam: PRESENT: moist, neck supple, tongue midline Neck exam: PRESENT: full ROM. ABSENT: carotid bruit, JVD, lymphadenopathy, thyromegaly Respiratory exam: PRESENT: clear to auscultation bilaterally. ABSENT: rales, rhonchi, stridor, wheezes Cardiovascular exam: PRESENT: RRR, +S1, +S2. ABSENT: systolic murmur Pulses: PRESENT: normal radial pulses, normal dorsalis pedis pulses GI/Abdominal exam: PRESENT: normal bowel sounds, soft. ABSENT: guarding, mass, tenderness Rectal exam: deferred Extremities exam: PRESENT: full ROM. ABSENT: calf tenderness, pedal edema Musculoskeletal: PRESENT: full ROM. ABSENT: deformity Neurological exam: PRESENT: alert, Awake, Oriented to person, Oriented to place , Oriented to time, reflexes normal, CN II-XII grossly intact. ABSENT: motor sensory deficit Psychiatric exam: PRESENT: appropriate affect, normal mood. ABSENT: homicidal ideation, suicidal ideation Skin exam: PRESENT: intact, dry, warm. ABSENT: rash Results Laboratory Results: 12/06/16 08:05 12/07/16 08:33 12/07/16 08:33 Sodium 144.5 Potassium 4.1 Chloride 112 H Carbon Dioxide 23 Anion Gap 10 BUN 29 H Creatinine 1.33 H Est GFR ( Amer) 52 L Est GFR (Non-Af Amer) 43 L Glucose 86 Calcium 8.9 12/05/16 18:12 Catheterized Urine Urine Culture - Final NO GROWTH 2 DAYS 11/26/16 11/27/16 11/27/16 22:44 05:00 10:49 CK-MB (CK-2) 1.74 2.77 4.23 Troponin I 0.090 0.164 0.418 11/28/16 11/28/16 11/28/16 06:39 12:42 18:17 CK-MB (CK-2) Troponin I 0.329 0.186 0.209 11/29/16 00:28 CK-MB (CK-2) Troponin I 0.220 Impressions: Brain MRI with MRA 11/27/16 00:00 IMPRESSION: NORMAL MRA OF [place]. Head MRI 11/27/16 00:00 IMPRESSION: Diffuse confluent and focal areas of abnormal signal intensity in the periventricular white matter on the FLAIR sequence as noted above. Will this may only represent small vessel ischemic changes, the possibility of a demyelinating process such is in mass cannot be excluded. Clinical correlation is recommended. Focal area of abnormal signal intensity on the diffusion weighted sequence at the level of the medulla on the right consistent with an area of recent infarction. Other findings as noted above EVIDENCE OF ACUTE STROKE: NO. Neck MRA 11/27/16 00:00 IMPRESSION: NO SIGNIFICANT STENOSIS. Vascular Ultrasound 11/29/16 00:00 IMPRESSION: NO DOPPLER EVIDENCE OF HEMODYNAMICALLY SIGNIFICANT RENAL ARTERY STENOSIS. Modified Barium Swallow 12/02/16 00:00 IMPRESSION: LARYNGEAL PENETRATION AND TRACHEAL ASPIRATION WITH THIN, NECTAR, AND POST SWALLOW RESIDUAL CONSISTENCIES.PLEASE SEE SPEECH PATHOLOGIST REPORT FOR OTHER FINDINGS AND RECOMMENDATIONS. Chest X-Ray 12/05/16 00:00 IMPRESSION: NO ACUTE RADIOGRAPHIC FINDING IN THE CHEST. Head CT 12/05/16 00:00 IMPRESSION: Unremarkable noncontrast head CT. EVIDENCE OF ACUTE STROKE: NO. Assessment & Plan - Diagnosis (1) Acute kidney injury Is this a current diagnosis for this admission?: Yes Plan: This is most likely secondary to prerenal factors including fluctuations and hemodynamic changes with regards to blood pressure. Patient's kidney function currently has been stable for the last few days. It is also very possible that the patient could have an underlying chronic kidney disease but since we do not have too much records only time can tell if her kidney function will actually improve to normal or prove that she does have an underlying chronic kidney disease. She has trace proteinuria and no microhematuria. Currently nonoliguric. If the patient does have an underlying chronic kidney disease this is most likely secondary to hypertensive nephrosclerosis. Patient would definitely need to be followed up as an outpatient. Since she is stable in terms of kidney function at this time I think she can be safely discharged and I will be happy to see her as an outpatient in my office in the next 2-3 weeks. She needs to have a repeat BMP prior to her appointment to see me if she chooses to follow-up with me. (2) Hypertension Qualifiers: Hypertension type: essential hypertension Qualified Code(s): I10 - Essential (primary) hypertension Is this a current diagnosis for this admission?: Yes Plan: Patient has severe resistant at times labile hypertension. So far no secondary causes been identified. She is negative for renal artery stenosis and has normal metanephrines. She also has normal thyroid function. I will check her plasma renin and plasma aldosterone. Continue all current medications. Encourage patient to be compliant with medications. (4) Acute cerebrovascular accident (CVA) of cerebellum Is this a current diagnosis for this admission?: Yes - Notes Notes: Thank you very much for this consultation. - Time Time Spent: 50 to 70 Minutes
[2016-12-07] MEDS: SENNOSIDES/DOCUSATE 8.6-50 MG 1 EACH TABLET PO SCH (21:19)
[2016-12-07] MEDS: SIMVASTATIN 40 MG TABLET PO SCH (21:21)
[2016-12-07] MEDS: AMLODIPINE BESYLATE 5 MG TABLET PO SCH (21:21)
[2016-12-08 05:28] LABS: ANION GAP 10 (5-19); BLOOD UREA NITROGEN 24 mg/dL (7-20); CALCIUM 9.1 mg/dL (8.4-10.2); CARBON DIOXIDE 23 mmol/L (22-30); CHLORIDE 112 mmol/L (98-107); CREATININE RESULT 1.27 mg/dL (0.52-1.25); GLUCOSE 113 mg/dL (75-110); POTASSIUM 3.9 mmol/L (3.6-5.0); SODIUM 145.1 mmol/L (137-145)
[2016-12-08] MEDS: CLONIDINE HCL 0.2 MG TABLET PO SCH ×3 (06:11→21:16)
[2016-12-08] MEDS: ENOXAPARIN SODIUM INJ 40 MG/0.4 ML DISP.SYRIN SUBCUT SCH (11:29)
[2016-12-08] MEDS: NICOTINE 14 MG/24 HR PATCH.TD24 TD SCH (11:29)
[2016-12-08] MEDS: NYSTATIN 500000 UNIT/5 ML UDCUP PO SCH ×4 (11:29→21:17)
[2016-12-08] MEDS: DOCUSATE SODIUM 100 MG CAPSULE PO SCH ×2 (11:30→17:28)
[2016-12-08] MEDS: LISINOPRIL 10 MG TABLET PO SCH ×2 (11:30→21:16)
[2016-12-08] MEDS: ASPIRIN 325 MG TABLET, ENT COATED PO SCH (11:30)
--- NOTE | 2016-12-08 15:59 | PDOC PROGRESS REPORT ---
Subjective Progress Note for:: 12/08/16 Subjective:: Patient did much better today with physical therapy. She was able to walk 40 feet but was a moderate one person assist with this. Walker. She does still list somewhat to the right. She still has difficulty with vision in her right eye. Her parents are present at bedside and she gives me permission to speak with them. Patient's parents do reveal to me that this patient is homeless and has been living in her car. Patient denies chest pain, shortness of breath, abdominal pain, nausea, vomiting , fevers, chills, diarrhea, constipation, headache. Physical Exam Vital Signs: Temp Pulse Resp BP Pulse Ox 98.4 F 61 18 135/73 H 98 12/08/16 11:23 12/08/16 11:23 12/08/16 11:23 12/08/16 11:23 12/08/16 11:23 Intake & Output 12/07/16 12/08/16 12/09/16 06:59 06:59 06:59 Intake Total 3635 3207 Output Total 0 Balance 3635 3207 Weight 70.1 kg 70.7 kg Exam: General: Awake alert and oriented x3, no acute respiratory distress HEENT: AT/NC, PERRL, oropharynx is moist, no scleral icterus, no conjunctival injection Neck: No JVD, trachea midline Chest: CTAB CV: Regular rate and rhythm, normal S1 and S2, no murmur, rub, gallop Abdomen: Soft, nontender to palpation, nondistended, active bowel sounds; no rebound, rigidity, or guarding Extremities: No cyanosis, clubbing or edema Neuro: Right eye laterally deviated, +FTN; ataxia; awake alert and oriented x3 Psych: Normal mood and affect Skin: Xanthelasma on bilateral eyes Results Laboratory Results: 12/06/16 08:05 12/08/16 04:48 12/08/16 04:48 Sodium 145.1 H Potassium 3.9 Chloride 112 H Carbon Dioxide 23 Anion Gap 10 BUN 24 H Creatinine 1.27 H Est GFR ( Amer) 55 L Est GFR (Non-Af Amer) 45 L Glucose 113 H Calcium 9.1 11/26/16 11/27/16 11/27/16 22:44 05:00 10:49 CK-MB (CK-2) 1.74 2.77 4.23 Troponin I 0.090 0.164 0.418 11/28/16 11/28/16 11/28/16 06:39 12:42 18:17 CK-MB (CK-2) Troponin I 0.329 0.186 0.209 11/29/16 00:28 CK-MB (CK-2) Troponin I 0.220 Impressions: Brain MRI with MRA 11/27/16 00:00 IMPRESSION: NORMAL MRA OF THE [place] OF [place]. Head MRI 11/27/16 00:00 IMPRESSION: Diffuse confluent and focal areas of abnormal signal intensity in the periventricular white matter on the FLAIR sequence as noted above. Will this may only represent small vessel ischemic changes, the possibility of a demyelinating process such is in mass cannot be excluded. Clinical correlation is recommended. Focal area of abnormal signal intensity on the diffusion weighted sequence at the level of the medulla on the right consistent with an area of recent infarction. Other findings as noted above EVIDENCE OF ACUTE STROKE: NO. Neck MRA 11/27/16 00:00 IMPRESSION: NO SIGNIFICANT STENOSIS. Vascular Ultrasound 11/29/16 00:00 IMPRESSION: NO DOPPLER EVIDENCE OF HEMODYNAMICALLY SIGNIFICANT RENAL ARTERY STENOSIS. Modified Barium Swallow 12/02/16 00:00 IMPRESSION: LARYNGEAL PENETRATION AND TRACHEAL ASPIRATION WITH THIN, NECTAR, AND POST SWALLOW RESIDUAL CONSISTENCIES.PLEASE SEE SPEECH PATHOLOGIST REPORT FOR OTHER FINDINGS AND RECOMMENDATIONS. Chest X-Ray 12/05/16 00:00 IMPRESSION: NO ACUTE RADIOGRAPHIC FINDING IN THE CHEST. Head CT 12/05/16 00:00 IMPRESSION: Unremarkable noncontrast head CT. EVIDENCE OF ACUTE STROKE: NO. Assessment & Plan - Diagnosis (1) Acute cerebrovascular accident (CVA) of cerebellum Is this a current diagnosis for this admission?: Yes Plan: Patient MRI of the head done on 11/27/16 reveals small infarct at the level of the right medulla. Patient has been seen by PT, OT, and speech. repeat Ct head negative for hydrocephalus or herniation Patient is currently pending rehabilitation placement, but due to her insurance status, and left but not less than optimistic that this will be possible. Patient's parents are willing to take her home and I feel that this is appropriate. (2) Hypertensive emergency Is this a current diagnosis for this admission?: Yes Plan: Renal ultrasound is negative for ELÍAS, serum and urine metanephrines and normetanephrine's are negative Improved (3) PRES (posterior reversible encephalopathy syndrome) Is this a current diagnosis for this admission?: Yes Plan: At this time the neuroradiologist has reviewed her MRI and there is concern for PRES. We will place patient on seizure precautions. If patient does have a seizure, she will need to be loaded with 1 g of Dilantin. Initial read of the MRI was positive for a small stroke at the level of the medulla. Continue PT, aspirin, statin, and blood pressure control. Concerned that while this may have been present, patient is not substantially improving which is likely secondary to underlying infarct (4) Hyperlipidemia LDL goal <70 Is this a current diagnosis for this admission?: Yes Plan: Patient on simvastatin Will monitor for rhabdomyolysis in light of her concurrent use of Norvasc (5) Tobacco abuse Is this a current diagnosis for this admission?: Yes Plan: nicotine patch prn. Have encouraged cessation. (6) Elevated troponin Is this a current diagnosis for this admission?: Yes Plan: This is likely secondary to cardiac strain. Trending down and improving. (7) Dysphagia Qualifiers: Dysphagia type: unspecified Qualified Code(s): R13.10 - Dysphagia, unspecified Is this a current diagnosis for this admission?: Yes Plan: Have modified patient's diet based on MBS. Continue speech therapy (8) Acute renal failure Qualifiers: Acute renal failure type: unspecified Qualified Code(s): N17.9 - Acute kidney failure, unspecified Is this a current diagnosis for this admission?: Yes Plan: Secondary to dehydration. Improved after IV fluids. Stop IV fluids and encourage oral intake (9) UTI (urinary tract infection) Qualifiers: Urinary tract infection type: acute cystitis Hematuria presence: without hematuria Qualified Code(s): N30.00 - Acute cystitis without hematuria Is this a current diagnosis for this admission?: Yes Plan: Culture currently negative. Stop Levaquin - Time Time Spent with patient: 35 or more minutes Medications reviewed and adjusted accordingly: Yes Anticipated discharge: Home Within: when bed available
[2016-12-08] MEDS: SENNOSIDES/DOCUSATE 8.6-50 MG 1 EACH TABLET PO SCH (21:13)
[2016-12-08] MEDS: SIMVASTATIN 40 MG TABLET PO SCH (21:16)
[2016-12-08] MEDS: AMLODIPINE BESYLATE 5 MG TABLET PO SCH (21:16)
[2016-12-09] MEDS: CLONIDINE HCL 0.2 MG TABLET PO SCH ×3 (05:02→22:21)
[2016-12-09] MEDS ORDERED: AMLODIPINE BESYLATE 5 MG TABLET PO SCH (08:45)
[2016-12-09 09:41] LABS: HEMATOCRIT 34.7 % (36.0-47.0); HGB HCT DIFFERENCE -1.7; MEAN CORPUSCULAR HEMOGLOBIN 25.5 pg (27.0-33.4); MEAN CORPUSCULAR HGB CONC 31.6 g/dL (32.0-36.0); MEAN CORPUSCULAR VOLUME 81 fl (80-97); RED BLOOD COUNT 4.29 10^6/uL (3.72-5.28); RED CELL DISTRIBUTION WIDTH 16.8 % (11.5-14.0); WHITE BLOOD COUNT 10.4 10^3/uL (4.0-10.5)
[2016-12-09] MEDS: LISINOPRIL 10 MG TABLET PO SCH (09:51)
[2016-12-09] MEDS: NYSTATIN 500000 UNIT/5 ML UDCUP PO SCH ×4 (09:51→22:20)
[2016-12-09] MEDS: DOCUSATE SODIUM 100 MG CAPSULE PO SCH ×2 (09:51→17:45)
[2016-12-09] MEDS: NICOTINE 14 MG/24 HR PATCH.TD24 TD SCH (09:51)
[2016-12-09] MEDS: ASPIRIN 325 MG TABLET, ENT COATED PO SCH (09:51)
[2016-12-09] MEDS: ENOXAPARIN SODIUM INJ 40 MG/0.4 ML DISP.SYRIN SUBCUT SCH (09:52)
[2016-12-09] MEDS ORDERED: HYDRALAZINE HCL INJ/PF 20 MG/1 ML SDV IV PRN (16:05)
[2016-12-09] MEDS ORDERED: HYDRALAZINE HCL INJ/PF 20 MG/1 ML SDV ONE (16:14)
[2016-12-09] MEDS ORDERED: HYDRALAZINE HCL 50 MG TABLET PO ONE (16:30)
--- NOTE | 2016-12-09 17:32 | PDOC PROGRESS REPORT ---
Subjective Progress Note for:: 12/09/16 Subjective:: The patient is resting in her bed. She has no complaints today that she can vocalize. She states she has some blurry vision in her right eye and is wearing an eye patch. Otherwise she denies fever chills. No chest pain, shortness of breath or heart palpitations. No nausea vomiting or diarrhea. No dysuria, frequency or hematuria. She worked with physical therapy today and did quite well. She is scheduled to be discharged Wednesday to go home to her parents for further rehabilitation. Physical Exam Vital Signs: Temp Pulse Resp BP Pulse Ox 98.1 F 61 16 230/112 H 100 12/09/16 16:00 12/09/16 16:00 12/09/16 16:00 12/09/16 16:00 12/09/16 16:00 Intake & Output 12/08/16 12/09/16 12/10/16 06:59 06:59 06:59 Intake Total 3207 981 Output Total 0 Balance 3207 981 Weight 70.7 kg 70.6 kg General appearance: PRESENT: no acute distress, well-developed, well-nourished Head exam: PRESENT: atraumatic, normocephalic Eye exam: PRESENT: other - The patient has an eye patch over one eye. Mouth exam: PRESENT: dry mucosa Respiratory exam: PRESENT: clear to auscultation surjit. ABSENT: rales, rhonchi, wheezes GI/Abdominal exam: PRESENT: normal bowel sounds, soft. ABSENT: distended, guarding, mass, organolmegaly, rebound, tenderness Neurological exam: PRESENT: alert, awake, oriented to person, oriented to place , oriented to time, oriented to situation, other - Patient has blurry vision in her right eye. Left-sided weakness is improving.. ABSENT: motor sensory deficit Psychiatric exam: PRESENT: appropriate affect, normal mood. ABSENT: homicidal ideation, suicidal ideation Skin exam: PRESENT: dry, intact, warm. ABSENT: cyanosis, rash Results Laboratory Results: 12/09/16 09:19 12/08/16 04:48 12/09/16 09:19 WBC 10.4 RBC 4.29 Hgb 11.0 L Hct 34.7 L MCV 81 MCH 25.5 L MCHC 31.6 L RDW 16.8 H Plt Count 266 09/11/27/16 11/27/16 22:44 05:00 10:49 CK-MB (CK-2) 1.74 2.77 4.23 Troponin I 0.090 0.164 0.418 11/28/16 11/28/16 11/28/16 06:39 12:42 18:17 CK-MB (CK-2) Troponin I 0.329 0.186 0.209 11/29/16 00:28 CK-MB (CK-2) Troponin I 0.220 Impressions: Brain MRI with MRA 11/27/16 00:00 IMPRESSION: NORMAL MRA OF THE [place] OF [place]. Head MRI 11/27/16 00:00 IMPRESSION: Diffuse confluent and focal areas of abnormal signal intensity in the periventricular white matter on the FLAIR sequence as noted above. Will this may only represent small vessel ischemic changes, the possibility of a demyelinating process such is in mass cannot be excluded. Clinical correlation is recommended. Focal area of abnormal signal intensity on the diffusion weighted sequence at the level of the medulla on the right consistent with an area of recent infarction. Other findings as noted above EVIDENCE OF ACUTE STROKE: NO. Neck MRA 11/27/16 00:00 IMPRESSION: NO SIGNIFICANT STENOSIS. Vascular Ultrasound 11/29/16 00:00 IMPRESSION: NO DOPPLER EVIDENCE OF HEMODYNAMICALLY SIGNIFICANT RENAL ARTERY STENOSIS. Modified Barium Swallow 12/02/16 00:00 IMPRESSION: LARYNGEAL PENETRATION AND TRACHEAL ASPIRATION WITH THIN, NECTAR, AND POST SWALLOW RESIDUAL CONSISTENCIES.PLEASE SEE SPEECH PATHOLOGIST REPORT FOR OTHER FINDINGS AND RECOMMENDATIONS. Chest X-Ray 12/05/16 00:00 IMPRESSION: NO ACUTE RADIOGRAPHIC FINDING IN THE CHEST. Head CT 12/05/16 00:00 IMPRESSION: Unremarkable noncontrast head CT. EVIDENCE OF ACUTE STROKE: NO. Assessment & Plan - Diagnosis (1) Acute cerebrovascular accident (CVA) of cerebellum Is this a current diagnosis for this admission?: Yes Plan: Continue full dose aspirin. Unfortunately the patient does not have insurance so it is not going to be possible for her to go to rehabilitation. Her parents are going to move her on Wednesday. That will be her discharge today. We will continue to try to get her blood pressure under better control. (2) Hypertensive emergency Is this a current diagnosis for this admission?: Yes Plan: Everythingat the end of answering the initially this was resolved. This afternoon her blood pressure got up to 230/112. She was given 1 dose of IV hydralazine. I have increased her amlodipine to 10 mg this morning. I am going to increase her p.o. hydralazine to 100 mg 3 times daily. She will continue current dose of clonidine. I am going to change her lisinopril to losartan to see if that works better. Will continue to try to get her blood pressure under better control. She will have IV hydralazine available as needed. (3) PRES (posterior reversible encephalopathy syndrome) Is this a current diagnosis for this admission?: Yes Plan: Continue to monitor closely for development of seizures. (4) Hyperlipidemia LDL goal <70 Is this a current diagnosis for this admission?: Yes Plan: Continue statin medication (5) Elevated troponin Is this a current diagnosis for this admission?: Yes Plan: Secondary to acute CVA. (6) Dysphagia Qualifiers: Dysphagia type: unspecified Qualified Code(s): R13.10 - Dysphagia, unspecified Is this a current diagnosis for this admission?: Yes Plan: She will continue working with speech therapy. Currently on a regular diet. Speech therapy is following (7) Acute renal failure Qualifiers: Acute renal failure type: unspecified Qualified Code(s): N17.9 - Acute kidney failure, unspecified Is this a current diagnosis for this admission?: Yes Plan: Improving. Her creatinine is down to 1.2 from 1.47 at the time of admission. This may be her new baseline. This is likely due to uncontrolled hypertension. (8) UTI (urinary tract infection) Qualifiers: Urinary tract infection type: acute cystitis Hematuria presence: without hematuria Qualified Code(s): N30.00 - Acute cystitis without hematuria Is this a current diagnosis for this admission?: Yes Plan: Ruled out. Urine culture was negative. Her Levaquin has been stopped. (9) Hypernatremia Plan: This is quite mild. Continue to monitor - Time Time Spent with patient: 25-34 minutes - Inpatient Certification Medical Necessity: Other - Inpatient hospitalization remains necessary. The patient still has uncontrolled hypertension requiring parenteral therapies. Her parents are going to come in town on Wednesday and pick her up so that she can move back home with them.
[2016-12-09] MEDS: AMLODIPINE BESYLATE 10 MG TABLET PO SCH (22:21)
[2016-12-09] MEDS: HYDRALAZINE HCL 50 MG TABLET PO SCH (22:21)
[2016-12-09] MEDS: SIMVASTATIN 40 MG TABLET PO SCH (22:21)
[2016-12-09] MEDS: SENNOSIDES/DOCUSATE 8.6-50 MG 1 EACH TABLET PO SCH (22:21)
[2016-12-10] MEDS: CLONIDINE HCL 0.2 MG TABLET PO SCH ×3 (05:42→22:25)
[2016-12-10] MEDS: HYDRALAZINE HCL 50 MG TABLET PO SCH ×3 (05:42→22:25)
[2016-12-10 06:37] LABS: ANION GAP 11 (5-19); BLOOD UREA NITROGEN 21 mg/dL (7-20); CALCIUM 9.6 mg/dL (8.4-10.2); CARBON DIOXIDE 28 mmol/L (22-30); CHLORIDE 105 mmol/L (98-107); CREATININE RESULT 1.23 mg/dL (0.52-1.25); GLUCOSE 96 mg/dL (75-110); MAGNESIUM 1.8 mg/dL (1.6-2.3); POTASSIUM 4.8 mmol/L (3.6-5.0); SODIUM 144.3 mmol/L (137-145)
[2016-12-10] MEDS: NICOTINE 14 MG/24 HR PATCH.TD24 TD SCH (10:56)
[2016-12-10] MEDS: NYSTATIN 500000 UNIT/5 ML UDCUP PO SCH ×4 (10:56→22:23)
[2016-12-10] MEDS: ASPIRIN 325 MG TABLET, ENT COATED PO SCH (10:56)
[2016-12-10] MEDS: DOCUSATE SODIUM 100 MG CAPSULE PO SCH ×2 (10:56→17:12)
[2016-12-10] MEDS: ENOXAPARIN SODIUM INJ 40 MG/0.4 ML DISP.SYRIN SUBCUT SCH (10:56)
[2016-12-10] MEDS: LOSARTAN POTASSIUM 50 MG TABLET PO SCH (10:56)
--- NOTE | 2016-12-10 15:20 | PDOC PROGRESS REPORT ---
Subjective Progress Note for:: 12/10/16 Subjective:: The patient is resting in a chair today. She states she worked with physical therapy and occupational therapy and she is doing quite well. She states she feels better now that her blood pressure is under better control. She states she does not feel as tense and she feels more relaxed. She has had no fever or chills overnight. No chest pain, shortness of breath or heart palpitations. No nausea, vomiting or diarrhea. No dysuria, frequency or hematuria. Physical Exam Vital Signs: Temp Pulse Resp BP Pulse Ox 98.1 F 70 16 123/63 99 12/10/16 12:00 12/10/16 12:00 12/10/16 12:00 12/10/16 12:00 12/10/16 12:00 Intake & Output 12/09/16 12/10/16 12/11/16 06:59 06:59 06:59 Intake Total 981 960 Balance 981 960 Weight 70.6 kg 71.5 kg General appearance: PRESENT: no acute distress, well-developed, well-nourished Head exam: PRESENT: atraumatic, normocephalic Respiratory exam: PRESENT: clear to auscultation surjit. ABSENT: rales, rhonchi, wheezes Cardiovascular exam: PRESENT: RRR. ABSENT: diastolic murmur, rubs, systolic murmur GI/Abdominal exam: PRESENT: normal bowel sounds, soft. ABSENT: distended, guarding, mass, organolmegaly, rebound, tenderness Rectal exam: PRESENT: deferred Extremities exam: PRESENT: full ROM. ABSENT: calf tenderness, clubbing, pedal edema Neurological exam: PRESENT: alert, awake, oriented to person, oriented to place , oriented to time, oriented to situation, CN II-XII grossly intact. ABSENT: motor sensory deficit Psychiatric exam: PRESENT: appropriate affect, normal mood. ABSENT: homicidal ideation, suicidal ideation Skin exam: PRESENT: dry, intact, warm. ABSENT: cyanosis, rash Results Laboratory Results: 12/09/16 09:19 12/10/16 05:11 12/10/16 05:11 Sodium 144.3 Potassium 4.8 Chloride 105 Carbon Dioxide 28 Anion Gap 11 BUN 21 H Creatinine 1.23 Est GFR ( Amer) 57 L Est GFR (Non-Af Amer) 47 L Glucose 96 Calcium 9.6 Magnesium 1.8 11/26/16 11/27/16 11/27/16 22:44 05:00 10:49 CK-MB (CK-2) 1.74 2.77 4.23 Troponin I 0.090 0.164 0.418 11/28/16 11/28/16 11/28/16 06:39 12:42 18:17 CK-MB (CK-2) Troponin I 0.329 0.186 0.209 11/29/16 00:28 CK-MB (CK-2) Troponin I 0.220 Impressions: Brain MRI with MRA 11/27/16 00:00 IMPRESSION: NORMAL MRA OF THE [place] OF [place]. Head MRI 11/27/16 00:00 IMPRESSION: Diffuse confluent and focal areas of abnormal signal intensity in the periventricular white matter on the FLAIR sequence as noted above. Will this may only represent small vessel ischemic changes, the possibility of a demyelinating process such is in mass cannot be excluded. Clinical correlation is recommended. Focal area of abnormal signal intensity on the diffusion weighted sequence at the level of the medulla on the right consistent with an area of recent infarction. Other findings as noted above EVIDENCE OF ACUTE STROKE: NO. Neck MRA 11/27/16 00:00 IMPRESSION: NO SIGNIFICANT STENOSIS. Vascular Ultrasound 11/29/16 00:00 IMPRESSION: NO DOPPLER EVIDENCE OF HEMODYNAMICALLY SIGNIFICANT RENAL ARTERY STENOSIS. Modified Barium Swallow 12/02/16 00:00 IMPRESSION: LARYNGEAL PENETRATION AND TRACHEAL ASPIRATION WITH THIN, NECTAR, AND POST SWALLOW RESIDUAL CONSISTENCIES.PLEASE SEE SPEECH PATHOLOGIST REPORT FOR OTHER FINDINGS AND RECOMMENDATIONS. Chest X-Ray 12/05/16 00:00 IMPRESSION: NO ACUTE RADIOGRAPHIC FINDING IN THE CHEST. Head CT 12/05/16 00:00 IMPRESSION: Unremarkable noncontrast head CT. EVIDENCE OF ACUTE STROKE: NO. Assessment & Plan - Diagnosis (1) Acute cerebrovascular accident (CVA) of cerebellum Is this a current diagnosis for this admission?: Yes Plan: Continue full dose aspirin. She will be discharged on Wednesday to go home with her parents out of state. (2) Hypertensive emergency Is this a current diagnosis for this admission?: Yes Plan: The patient's blood pressure medications were adjusted yesterday and today the patient's blood pressures are ranging from the mid 120s-140s systolically. This is a dramatic improvement. Will continue current regimen as she is doing quite well. (3) PRES (posterior reversible encephalopathy syndrome) Is this a current diagnosis for this admission?: Yes Plan: Continue to monitor closely for development of seizures. (4) Hyperlipidemia LDL goal <70 Is this a current diagnosis for this admission?: Yes Plan: Continue statin medication (5) Elevated troponin Is this a current diagnosis for this admission?: Yes Plan: Secondary to acute CVA. (6) Dysphagia Qualifiers: Dysphagia type: unspecified Qualified Code(s): R13.10 - Dysphagia, unspecified Is this a current diagnosis for this admission?: Yes Plan: She will continue working with speech therapy. Currently on a regular diet. Speech therapy is following (7) Acute renal failure Qualifiers: Acute renal failure type: unspecified Qualified Code(s): N17.9 - Acute kidney failure, unspecified Is this a current diagnosis for this admission?: Yes Plan: Improving. Her creatinine is down to 1.2 from 1.47 at the time of admission. This may be her new baseline. This is likely due to uncontrolled hypertension. (8) UTI (urinary tract infection) Qualifiers: Urinary tract infection type: acute cystitis Hematuria presence: without hematuria Qualified Code(s): N30.00 - Acute cystitis without hematuria Is this a current diagnosis for this admission?: Yes Plan: Ruled out. Urine culture was negative. Her Levaquin has been stopped. (9) Hypernatremia Plan: Resolved - Time Time Spent with patient: 15-24 minutes - Inpatient Certification Medical Necessity: Other - Inpatient hospitalization remains necessary for disposition. The patient's parents will be able to take her home on Wednesday. She will be in the hospital for 48 more hours. During this time. We will monitor her blood pressure and make any further titrations to her blood pressure medications as necessary.
[2016-12-10] MEDS: SENNOSIDES/DOCUSATE 8.6-50 MG 1 EACH TABLET PO SCH (22:24)
[2016-12-10] MEDS: SIMVASTATIN 40 MG TABLET PO SCH (22:25)
[2016-12-10] MEDS: AMLODIPINE BESYLATE 10 MG TABLET PO SCH (22:25)
[2016-12-11] MEDS: CLONIDINE HCL 0.2 MG TABLET PO SCH ×3 (06:16→22:26)
[2016-12-11] MEDS: HYDRALAZINE HCL 50 MG TABLET PO SCH ×3 (06:16→22:27)
[2016-12-11 06:19] LABS: ABSOLUTE BASOPHILS # (AUTO) 0.1 10^3/uL (0.0-0.2); ABSOLUTE EOSINOPHILS # (AUTO) 0.1 10^3/uL (0.0-0.6); ABSOLUTE LYMPHOCYTES (AUTO) 1.2 10^3/uL (0.5-4.7); ABSOLUTE MONOCYTES (AUTO) 0.6 10^3/uL (0.1-1.4); ABSOLUTE NEUT (AUTO) 7.6 10^3/uL (1.7-8.2); BASOPHILS % (AUTO) 0.5 % (0-2); EOSINOPHILS % (AUTO) 1.2 % (0-6); HEMATOCRIT 37.3 % (36.0-47.0); HEMOGLOBIN 12.2 g/dL (12.0-15.5); HGB HCT DIFFERENCE -0.7; LYMPHOCYTES % (AUTO) 12.2 % (13-45); MEAN CORPUSCULAR HEMOGLOBIN 25.8 pg (27.0-33.4); MEAN CORPUSCULAR HGB CONC 32.6 g/dL (32.0-36.0); MEAN CORPUSCULAR VOLUME 79 fl (80-97); MONOCYTES % (AUTO) 6.4 % (3-13); RED BLOOD COUNT 4.72 10^6/uL (3.72-5.28); SEGMENTED NEUTROPHILS % (AUTO) 79.7 % (42-78); WHITE BLOOD COUNT 9.5 10^3/uL (4.0-10.5)
[2016-12-11 06:41] LABS: ANION GAP 12 (5-19); BLOOD UREA NITROGEN 23 mg/dL (7-20); CALCIUM 9.8 mg/dL (8.4-10.2); CARBON DIOXIDE 27 mmol/L (22-30); CHLORIDE 105 mmol/L (98-107); CREATININE RESULT 1.27 mg/dL (0.52-1.25); GLUCOSE 97 mg/dL (75-110); MAGNESIUM 1.8 mg/dL (1.6-2.3); POTASSIUM 4.3 mmol/L (3.6-5.0); SODIUM 143.8 mmol/L (137-145)
[2016-12-11] MEDS: DOCUSATE SODIUM 100 MG CAPSULE PO SCH ×2 (09:22→18:28)
[2016-12-11] MEDS: ASPIRIN 325 MG TABLET, ENT COATED PO SCH (09:35)
[2016-12-11] MEDS: ENOXAPARIN SODIUM INJ 40 MG/0.4 ML DISP.SYRIN SUBCUT SCH (09:35)
[2016-12-11] MEDS: LOSARTAN POTASSIUM 50 MG TABLET PO SCH (09:35)
[2016-12-11] MEDS: NYSTATIN 500000 UNIT/5 ML UDCUP PO SCH ×4 (09:35→22:26)
[2016-12-11] MEDS: NICOTINE 14 MG/24 HR PATCH.TD24 TD SCH (09:35)
--- NOTE | 2016-12-11 14:49 | PDOC PROGRESS REPORT ---
Subjective Progress Note for:: 12/11/16 Subjective:: The patient is a 46-year-old female who presented to the emergency room with hypertensive emergency and suffered an acute CVA. Unfortunately she does not have insurance. Her parents are coming to the [place] area this weekend to hopefully take the patient back home with them. Overall this week she is done well. She has worked hard with all of the therapist. We have finally gotten her blood pressure under better control. She appears to be stable for discharge this weekend whenever her parents get here and make the final arrangements. Today when I saw her she denies fever chills. No chest pain, shortness of breath or heart palpitations. No nausea, vomiting or diarrhea. She is tolerating her diet. No abdominal pain. No dysuria, frequency or hematuria. She continues to have issues with her vision and is alternating an eye patch between her eyes. Physical Exam Vital Signs: Temp Pulse Resp BP Pulse Ox 97.8 F 66 16 115/63 99 12/11/16 11:32 12/11/16 11:32 12/11/16 11:32 12/11/16 11:32 12/11/16 11:32 Intake & Output 12/10/16 12/11/16 12/12/16 06:59 06:59 06:59 Intake Total 960 880 Balance 960 880 Weight 71.5 kg 72 kg General appearance: PRESENT: no acute distress, thin, well-developed Head exam: PRESENT: atraumatic, normocephalic Eye exam: PRESENT: conjunctiva pink, EOMI, PERRLA. ABSENT: scleral icterus Mouth exam: PRESENT: moist Teeth exam: PRESENT: poor dentation Respiratory exam: PRESENT: clear to auscultation surjit. ABSENT: rales, rhonchi, wheezes Cardiovascular exam: PRESENT: RRR. ABSENT: diastolic murmur, rubs, systolic murmur GI/Abdominal exam: PRESENT: normal bowel sounds, soft. ABSENT: distended, guarding, mass, organolmegaly, rebound, tenderness Rectal exam: PRESENT: deferred Extremities exam: PRESENT: full ROM. ABSENT: calf tenderness, clubbing, pedal edema Neurological exam: PRESENT: alert, awake, oriented to person, oriented to place , oriented to time, oriented to situation. ABSENT: motor sensory deficit Psychiatric exam: PRESENT: appropriate affect, normal mood. ABSENT: homicidal ideation, suicidal ideation Skin exam: PRESENT: dry, intact, warm. ABSENT: cyanosis, rash Results Laboratory Results: 12/11/16 05:57 12/11/16 05:57 12/11/16 12/11/16 05:57 05:57 WBC 9.5 RBC 4.72 Hgb 12.2 Hct 37.3 MCV 79 L MCH 25.8 L MCHC 32.6 RDW 17.0 H Plt Count 268 Seg Neutrophils % 79.7 H Lymphocytes % 12.2 L Monocytes % 6.4 Eosinophils % 1.2 Basophils % 0.5 Absolute Neutrophils 7.6 Absolute Lymphocytes 1.2 Absolute Monocytes 0.6 Absolute Eosinophils 0.1 Absolute Basophils 0.1 Sodium 143.8 Potassium 4.3 Chloride 105 Carbon Dioxide 27 Anion Gap 12 BUN 23 H Creatinine 1.27 H Est GFR ( Amer) 55 L Est GFR (Non-Af Amer) 45 L Glucose 97 Calcium 9.8 Magnesium 1.8 11/26/16 11/27/16 11/27/16 22:44 05:00 10:49 CK-MB (CK-2) 1.74 2.77 4.23 Troponin I 0.090 0.164 0.418 11/28/16 11/28/16 11/28/16 06:39 12:42 18:17 CK-MB (CK-2) Troponin I 0.329 0.186 0.209 11/29/16 00:28 CK-MB (CK-2) Troponin I 0.220 Impressions: Brain MRI with MRA 11/27/16 00:00 IMPRESSION: NORMAL MRA OF THE [place] OF [place]. Head MRI 11/27/16 00:00 IMPRESSION: Diffuse confluent and focal areas of abnormal signal intensity in the periventricular white matter on the FLAIR sequence as noted above. Will this may only represent small vessel ischemic changes, the possibility of a demyelinating process such is in mass cannot be excluded. Clinical correlation is recommended. Focal area of abnormal signal intensity on the diffusion weighted sequence at the level of the medulla on the right consistent with an area of recent infarction. Other findings as noted above EVIDENCE OF ACUTE STROKE: NO. Neck MRA 11/27/16 00:00 IMPRESSION: NO SIGNIFICANT STENOSIS. Vascular Ultrasound 11/29/16 00:00 IMPRESSION: NO DOPPLER EVIDENCE OF HEMODYNAMICALLY SIGNIFICANT RENAL ARTERY STENOSIS. Modified Barium Swallow 12/02/16 00:00 IMPRESSION: LARYNGEAL PENETRATION AND TRACHEAL ASPIRATION WITH THIN, NECTAR, AND POST SWALLOW RESIDUAL CONSISTENCIES.PLEASE SEE SPEECH PATHOLOGIST REPORT FOR OTHER FINDINGS AND RECOMMENDATIONS. Chest X-Ray 12/05/16 00:00 IMPRESSION: NO ACUTE RADIOGRAPHIC FINDING IN THE CHEST. Head CT 12/05/16 00:00 IMPRESSION: Unremarkable noncontrast head CT. EVIDENCE OF ACUTE STROKE: NO. Assessment & Plan - Diagnosis (1) Acute cerebrovascular accident (CVA) of cerebellum Is this a current diagnosis for this admission?: Yes Plan: Continue aspirin and statin medication. Unfortunately she cannot go to rehabilitation due to her lack of insurance. Her parents are traveling here over the weekend hopefully to take her home. (2) Hypertensive emergency Is this a current diagnosis for this admission?: Yes Plan: The patient's blood pressures are doing quite well. We will just continue the current regimen. (3) PRES (posterior reversible encephalopathy syndrome) Is this a current diagnosis for this admission?: Yes Plan: Continue to monitor closely for development of seizures. She has had no seizure activity during the course of this hospitalization. (4) Hyperlipidemia LDL goal <70 Is this a current diagnosis for this admission?: Yes Plan: Continue statin medication (5) Elevated troponin Is this a current diagnosis for this admission?: Yes Plan: Secondary to acute CVA. (6) Dysphagia Qualifiers: Dysphagia type: unspecified Qualified Code(s): R13.10 - Dysphagia, unspecified Is this a current diagnosis for this admission?: Yes Plan: She will continue working with speech therapy. Currently on a regular diet. (7) Acute renal failure Qualifiers: Acute renal failure type: unspecified Qualified Code(s): N17.9 - Acute kidney failure, unspecified Is this a current diagnosis for this admission?: Yes Plan: Improving. Her creatinine is down to 1.2 from 1.47 at the time of admission. This may be her new baseline. This is likely due to uncontrolled hypertension. (8) UTI (urinary tract infection) Qualifiers: Urinary tract infection type: acute cystitis Hematuria presence: without hematuria Qualified Code(s): N30.00 - Acute cystitis without hematuria Is this a current diagnosis for this admission?: Yes Plan: Ruled out. Urine culture was negative. Her Levaquin has been stopped. (9) Hypernatremia Plan: Resolved. This was likely due to intravascular volume depletion. - Time Time Spent with patient: 15-24 minutes - Inpatient Certification Medical Necessity: Other - Inpatient hospitalization remains necessary for disposition. The patient may be discharged as soon as tomorrow if her parents get here and are ready to take her home. In the meantime she will continue to work with physical therapy and we will continue to monitor her blood pressure quite closely.
[2016-12-11] MEDS: SENNOSIDES/DOCUSATE 8.6-50 MG 1 EACH TABLET PO SCH (22:26)
[2016-12-11] MEDS: SIMVASTATIN 40 MG TABLET PO SCH (22:26)
[2016-12-11] MEDS: AMLODIPINE BESYLATE 10 MG TABLET PO SCH (22:27)
[2016-12-12 05:21] LABS: ABSOLUTE BASOPHILS # (AUTO) 0.1 10^3/uL (0.0-0.2); ABSOLUTE EOSINOPHILS # (AUTO) 0.3 10^3/uL (0.0-0.6); ABSOLUTE LYMPHOCYTES (AUTO) 1.7 10^3/uL (0.5-4.7); ABSOLUTE MONOCYTES (AUTO) 0.8 10^3/uL (0.1-1.4); ABSOLUTE NEUT (AUTO) 6.2 10^3/uL (1.7-8.2); EOSINOPHILS % (AUTO) 2.9 % (0-6); HEMATOCRIT 35.9 % (36.0-47.0); HEMOGLOBIN 11.9 g/dL (12.0-15.5); HGB HCT DIFFERENCE -0.2; LYMPHOCYTES % (AUTO) 18.5 % (13-45); MEAN CORPUSCULAR HEMOGLOBIN 26.3 pg (27.0-33.4); MEAN CORPUSCULAR HGB CONC 33.3 g/dL (32.0-36.0); MEAN CORPUSCULAR VOLUME 79 fl (80-97); MONOCYTES % (AUTO) 8.5 % (3-13); RED BLOOD COUNT 4.54 10^6/uL (3.72-5.28); RED CELL DISTRIBUTION WIDTH 17.2 % (11.5-14.0); SEGMENTED NEUTROPHILS % (AUTO) 69.1 % (42-78)
[2016-12-12 05:37] LABS: ANION GAP 9 (5-19); BLOOD UREA NITROGEN 27 mg/dL (7-20); CALCIUM 9.7 mg/dL (8.4-10.2); CARBON DIOXIDE 28 mmol/L (22-30); CHLORIDE 107 mmol/L (98-107); CREATININE RESULT 1.31 mg/dL (0.52-1.25); GLUCOSE 100 mg/dL (75-110); MAGNESIUM 1.8 mg/dL (1.6-2.3); POTASSIUM 4.1 mmol/L (3.6-5.0); SODIUM 144.3 mmol/L (137-145)
[2016-12-12] MEDS: CLONIDINE HCL 0.2 MG TABLET PO SCH (06:13)
[2016-12-12] MEDS: HYDRALAZINE HCL 50 MG TABLET PO SCH (06:13)
[2016-12-12] MEDS: LOSARTAN POTASSIUM 50 MG TABLET PO SCH (10:12)
[2016-12-12] MEDS: NICOTINE 14 MG/24 HR PATCH.TD24 TD SCH (10:12)
[2016-12-12] MEDS: NYSTATIN 500000 UNIT/5 ML UDCUP PO SCH (10:12)
[2016-12-12] MEDS: DOCUSATE SODIUM 100 MG CAPSULE PO SCH (10:13)
[2016-12-12] MEDS: ASPIRIN 325 MG TABLET, ENT COATED PO SCH (10:13)
[2016-12-12] MEDS: ENOXAPARIN SODIUM INJ 40 MG/0.4 ML DISP.SYRIN SUBCUT SCH (10:13)
[2016-12-12 10:39] VITALS: BP 212/114
--- NOTE | 2016-12-14 08:14 | DISCHARGE SUMMARY E ---
Discharge Summary NAME: BERNIE CONTRERAS : 1970 AGE: 46Y ADMITTED: 11/26/2016 DISCHARGED: 12/12/2016 ADMISSION DIAGNOSIS: 1. Hypertensive urgency. 2. Dizziness. 3. Nausea, vomiting. 4. Fecal impaction. DISCHARGE DIAGNOSES: 1. Acute cerebrovascular accident of cerebellum. 2. Hypertensive urgency, resolved. 3. Tourette syndrome. 4. Encephalopathy. 5. Hyperlipidemia. 6. Elevated troponin. 7. Dysphagia. 8. Acute renal failure. IMAGING: CT head normal brain without contrast. MRI of the head diffuse abnormal intensity in the periventricular white matter. MRI/MRA of the brain showed normal MRA. CONSULTATIONS: Nephrology consult. Echocardiogram was unremarkable. Normal ejection fraction. HOSPITAL COURSE: The patient is a pleasant 46-year-old unfortunate white female who has a past medical history of hypertension, poorly controlled, depression, had a history of hyperlipidemia. She presented with severe headache, nausea, vomiting, blurry vision. She was found to have blood pressure 280/163 in the emergency room. Then she developed CVA symptoms. She had CT scan of the head was unremarkable. MRI of the brain and MRA showed she had cerebellum stroke. She had a Doppler ultrasound of the renal artery that did not show any stenosis. The patient had her blood pressure controlled. She developed renal failure. Nephrology was consulted. She had repeat CT scan which was unremarkable. The patient had physical therapy, swallowing study. The patient's family wanted to take her to [place] and she will be discharged today to [place]. PHYSICAL EXAMINATION UPON DISCHARGE: GENERAL: Patient lying in bed not in distress. VITAL SIGNS: Blood pressure is 144/66, temperature 97.4, heart rate 59, respiratory rate 18, saturation 97%. HEENT: Head normocephalic, atraumatic. Pupils round, reactive to light and accommodation bilaterally. Extraocular movements intact. Ears: Tympanic membranes intact bilaterally. No discharge from the ears. No discharge from the nose. NECK: Supple. No increased JVD. No thyromegaly. No lymphadenopathy. CARDIOVASCULAR: Normal S1, S2. Regular rate and rhythm. No murmur. No gallop. RESPIRATORY: Lungs clear. ABDOMEN: Soft. MUSCULOSKELETAL: No edema. NEUROLOGIC: Awake, alert. LABORATORY: White blood count is 9, hemoglobin is 11.9, creatinine 1.3. DISCHARGE INSTRUCTIONS: Discharge patient home. MEDICATIONS: 1. Simvastatin 40 mg daily. 2. Losartan 50 mg daily. 3. Hydralazine 100 mg p.o. q.8 hour. 4. Clonidine 0.2 mg q.8 hour. 5. Amlodipine 10 mg daily. 6. Aspirin 81 mg daily DIET: Cardiac diet. ACTIVITY: As tolerated. Continue physical therapy in [place]. TIME SPENT: 40 minutes. DICTATING PHYSICIAN: JOON KEITA M.D. [id number] PHY#: [id number] ID: [id number] JOB#: [id number] ACCT: [id number] cc:LORETA SEGUNDO M.D., ABDELAZIZ M.D. > MTDD
[2016-12-14 08:52] LABS: ALDOSTERONE <1.0 ng/dL (0.0-30.0)
== END 2016-12-12 11:40 | disposition home or self-care (01) | DRG 64 ==
LOC: ER 17:13 → EH 20:33 → ICU 22:55 → 5 12-01 14:00
PROVIDERS: ADMIT Internal Medicine; ATTEND Internal Medicine
PROC: 3E0234Z Introduction of Serum, Toxoid and Vaccine into Muscle, Percutaneous Approach (ICD-10-PCS; principal; 2016-12-12)
DX: I63.9 Cerebral infarction, unspecified (principal); I67.83 Posterior reversible encephalopathy syndrome; I16.1 Hypertensive emergency; N17.9 Acute kidney failure, unspecified; N30.00 Acute cystitis without hematuria; E87.0 Hyperosmolality and hypernatremia; I10 Essential (primary) hypertension; Z91.14 Patient's other noncompliance with medication regimen; R13.10 Dysphagia, unspecified; Z59.7 Insufficient social insurance and welfare support; K56.41 Fecal impaction; E78.5 Hyperlipidemia, unspecified; F17.200 Nicotine dependence, unspecified, uncomplicated; R74.8 Abnormal levels of other serum enzymes; H55.00 Unspecified nystagmus; R27.0 Ataxia, unspecified; E86.0 Dehydration; F95.2 Tourette's disorder; Z82.49 Family history of ischemic heart disease and other diseases of the circulatory system; Z79.899 Other long term (current) drug therapy; Z23 Encounter for immunization; Z59.0 Homelessness; Z86.73 Personal history of transient ischemic attack (TIA), and cerebral infarction without residual deficits
CPT/HCPCS: 36415; 70450; 70544; 70547; 70551; 71010; 71020; 74230; 80048; 80053; 80061; 80307; 81001; 81025; 82088; 82550; 82553; 82570; 82962; 83036; 83735; 83835; 84244; 84439; 84443; 84484; 85025; 85027; 85610; 85730; 87040; 87086; 90686; 93005; 93010; 93306; 93976; 96365; 99291; J0360; J1650; J1956; J2060; J2405; J3490; J7030